=== PATIENT | female | born 1995 | race Caucasian/White ===

== ENCOUNTER → 2019-02-14 14:25 | Outpatient (CLI) | payer OTHER, SELFPAY ==
[2019-02-14 10:40] VITALS: BMI 29.9
[2019-02-19 16:41] LABS: HPV Reflexed? NOT INDICATED
== END ==
PROVIDERS: Referring Provider Nurse Practitioner Women's Health; Visit Provider Nurse Practitioner Women's Health
DX: Z12.4 Encounter for screening for malignant neoplasm of cervix (principal)
CPT/HCPCS: 87624; 88175; G0145

== ENCOUNTER → 2022-07-07 | Outpatient (CLI) | payer OTHER, SELFPAY ==
[2022-07-17 15:40] LABS: HPV Reflexed? NOT INDICATED
== END | disposition home or self-care (01) ==
LOC: LABSPEC 16:44
PROVIDERS: Visit Provider Obstetrics & Gynecology
DX: Z12.4 Encounter for screening for malignant neoplasm of cervix (principal)
CPT/HCPCS: 88175; G0145

== ENCOUNTER → 2023-06-14 | Outpatient (CLI) | payer OTHER, SELFPAY ==
[2023-06-16 21:06] LABS: Chlamydia By Nucleic Acid AMP Negative (Negative); Gonococcus By Nucleic Acid AMP Negative (Negative)
== END | disposition home or self-care (01) ==
LOC: LABSPEC 13:35
PROVIDERS: Referring Provider Registered Nurse; Visit Provider Registered Nurse
DX: Z34.90 Encounter for supervision of normal pregnancy, unspecified, unspecified trimester (principal); Z3A.00 Weeks of gestation of pregnancy not specified
CPT/HCPCS: 87086; 87491; 87591

== ENCOUNTER → 2023-07-29 | Outpatient (CLI) | payer OTHER, SELFPAY ==
[2023-07-29 08:03] LABS: Absolute Lymphocyte Count 2.06 X10^3/uL (0.83-4.51); Absolute Neutrophil Count 6.6 X10^3/uL (2.0-7.7); Basophil# 0.03 X10^3/uL; Basophil% 0.3 % (0-1); Eosinophil# 0.06 X10^3/uL; Eosinophils% 0.6 % (0-5); Hematocrit 36.6 % (37-47); Hemoglobin 12.7 g/dL (12.0-15.0); Lymphocyte # 2.06 X10^3/ul (0.83-4.51); Lymphocyte % 21.6 % (19-41); Mean Corp Hgb Conc 34.7 g/dL (32-36); Mean Corpuscular Hgb 30.7 pg (27.0-32.0); Mean Corpuscular Volume 88.4 fL (81-99); Mean Platelet Vol. 9.6 fl (6.2-12.0); Monocyte# 0.75 X10^3/uL; Monocyte% 7.9 % (0-10); NRBC Flagged by Analyzer 0 % (0-5); Neutrophil # 6.61 X10^3/uL (2.7-7.7); Neutrophil % 69.2 % (47-70); Platelet Count 233 K/mm3 (150-450); RBC Distribution Width CV 12.5 % (11.6-14.6); RBC Distribution Width SD 40.3 fl (35.1-43.9); Red Blood Count 4.14 M/mm3 (4.2-5.4); White Blood Count 9.6 K/mm3 (4.4-11.0)
[2023-07-29 08:59] LABS: Hemoglobin A1c 5.2 % (3.8-5.6)
[2023-07-31 09:29] LABS: HIV - WCH Non-Reactive (Nonreactive); Hepatitis B Surface Antigen Non-Reactive (Nonreactive); Hepatitis C Antibody Non-Reactive (Nonreactive); Rubella IgG Reactive (Nonreactive); Syphilis Antibodies Non-reactive
== END | disposition home or self-care (01) ==
LOC: LAB 07:43
PROVIDERS: PCP Nurse Practitioner Primary Care; Referring Provider Obstetrics & Gynecology; Visit Provider Registered Nurse
DX: O99.210 Obesity complicating pregnancy, unspecified trimester (principal); Z3A.00 Weeks of gestation of pregnancy not specified
CPT/HCPCS: 36415; 83036; 85025; 86703; 86762; 86780; 86803; 86850; 86900; 86901; 87340

== ENCOUNTER → 2023-11-01 | Outpatient (CLI) | payer OTHER, SELFPAY ==
--- OUTSIDE RECORDS SUMMARY | 2023-11-01 08:11 | XMS RPT_ITS | CCD ---
Author Name Unknown Address [address] [facility] [address] [place] [address] Organization [facility] Care Team Providers Care Usability Engineer Name Role Phone Podlogar STEAMBOAT INSPECTOR.Edy MOREJON Primary Care Provider Juan J Crespo MD Primary Care Provider JUAN J CRESPO Primary Care Unavailab le PODLOGAR, EDY Referring Unavailable JUAN J CRESPO Primary Care Unavailab le PODLOGAREDY Referring Unavailable PODLOGAREDY Attending Unavailable JUAN J CRESPO Primary Care Unavailab DARRIAN Houser Primary Care Unavailable KEMAL KNOX Referring Unavailabl e TRA ORTIZ Attending Unavailable Medications Completed/Discontinued Medications Medication Drug Class(es) Dates Sig (Normalized) Sig (Original) salicylic acid 170 mg/ml topical solution (2 sources) Start: 11-05-2019 End: 02-07-2022 Salicylic Acid 17 % external solution Indications: Viral warts, unspecified type Apply to affected area once daily for 14 days. 50 mL 0 11/05/2019 02/07/2022 Discontinued (Course of therapy completed) Problems Problem Classification Problem Date Documented Da te Episodic/Chronic Cardiac dysrhythmias (2 sources) Tachycardia; Translations: [Tachycardia, unspecified] Onset: 02-28-2023 Episodic Immunizations and screening for infectious disease (2 sources) Viral screening status; Translations: [Encounter for screening for other viral diseases] Episodic Other nutritional; endocrine; and metabolic disorders (3 sources) Obese class I; Translations: [Obesity, unspecified] Onset: 02-28-2023 Chronic Other screening for suspected conditions (not mental disorders or infectious disease) (1 source) Patient encounter status; Translations: [Encounter for screening for lipoid disorders] Episodic Results Test Name Value Interpretation Reference Range Facil ity Vital Signs Date Time Vital Sign Value Performing Clinician Roxanne kendall 02-28-2023 11:20-0400 Body weight 91.54 kg Edy Podlogar STEAMBOAT INSPECTOR.HEBREW PROFESSOR Work Phone: [facility] 02-28-2023 11:20-0400 Diastolic blood pressure 78 mm[Hg] Edy Podlogar STEAMBOAT INSPECTOR.HEBREW PROFESSOR Work Phone: [facility] 02-28-2023 11:20-0400 Heart rate 88 /min Edy Podlogar STEAMBOAT INSPECTOR.HEBREW PROFESSOR Work Phone: [facility] 02-28-2023 11:20-0400 Respiratory rate 16 /min Edy Podlogar STEAMBOAT INSPECTOR.HEBREW PROFESSOR Work Phone: [facility] 02-28-2023 11:20-0400 SaO2% (BldA) [Mass fraction] 98 % Edy Podlogar STEAMBOAT INSPECTOR.HEBREW PROFESSOR Work Phone: [facility] 02-28-2023 11:20-0400 Systolic blood pressure 118 mm[Hg] Edy Podlogar STEAMBOAT INSPECTOR.HEBREW PROFESSOR Work Phone: [facility] 02-07-2022 09:53-0400 Body height 166.8 cm Edy Podlogar STEAMBOAT INSPECTOR.HEBREW PROFESSOR Work Phone: [facility] 02-07-2022 09:53-0400 Body weight 91.44 kg Edy Podlogar STEAMBOAT INSPECTOR.HEBREW PROFESSOR Work Phone: [facility] 02-07-2022 09:53-0400 Diastolic blood pressure 84 mm[Hg] Edy Podlogar STEAMBOAT INSPECTOR.HEBREW PROFESSOR Work Phone: [facility] 02-07-2022 09:53-0400 Heart rate 99 /min Edy Podlogar STEAMBOAT INSPECTOR.HEBREW PROFESSOR Work Phone: [facility] 02-07-2022 09:53-0400 Respiratory rate 18 /min Edy Podlogar STEAMBOAT INSPECTOR.HEBREW PROFESSOR Work Phone: [facility] 02-07-2022 09:53-0400 SaO2% (BldA) [Mass fraction] 98 % Edy Pratt STEAMBOAT INSPECTOR.JEAN-PIERRE Work Phone: [facility] 02-07-2022 09:53-0400 Systolic blood pressure 118 mm[Hg] Edy Pratt STEAMBOAT INSPECTOR.JEAN-PIERRE Work Phone: [facility] Encounters Encounter Date Encounter Type Care Provider Facility Start: 09-05-2023 End: 09-05-2023 ambulatory [facility] Start: 03-01-2023 Telephone encounter Edy santos STEAMBOAT INSPECTOR.JEAN-PIERRE Work Phone: [facility] Procedures Date Procedure Procedure Detail Performing Clinician Start: 02-28-2023 Ecg routine ecg w/le ast 12 lds i&r only [facility] Provider Start: 11-02-2019 Adult depression screening assessment Edy Pratt APRN.HEBREW PROFESSOR Work Phone: Plan of Treatment Date Care Activity Detail Author Start: 05-26-2023 Influenza vaccination INFLUENZ A (Season Ended) [facility] Start: 02-28-2023 End: 04-30-2023 Comprehensive metabolic 2000 panel - Serum or Plasma [facility] Work Phone: Immunizations Immunization Date Immunization Notes Care Provider Kwan kendrick 04-09-2013 hepatitis A vaccine, unspecified formulation Edy Pratt STEAMBOAT INSPECTOR.JEAN-PIERRE Work Phone: [facility] 04-09-2013 human papilloma viru s vaccine, quadrivalent Edy Podlogar STEAMBOAT INSPECTOR.HEBREW PROFESSOR Work Phone: [facility] 11-19-2012 human papilloma viru s vaccine, quadrivalent Edy Podlogar STEAMBOAT INSPECTOR.HEBREW PROFESSOR Work Phone: [facility] 10-15-2012 human papilloma viru s vaccine, quadrivalent Edy Podlogar STEAMBOAT INSPECTOR.HEBREW PROFESSOR Work Phone: [facility] Work Phone: 10-15-2012 Meningococcal, MCV4, unspecified conjugate formulation(groups A, C, Y and W-135) Edy Pratt STEAMBOAT INSPECTOR.HEBREW PROFESSOR Work Phone: [facility] Work Phone: 10-04-2012 hepatitis A vaccine, unspecified formulation Edy Podlogar STEAMBOAT INSPECTOR.HEBREW PROFESSOR Work Phone: [facility] 10-04-2012 influenza virus vaccine, live, attenuated, for intranasal use Edy Podlogar STEAMBOAT INSPECTOR.HEBREW PROFESSOR Work Phone: [facility] 07-10-2010 influenza virus vaccine, live, attenuated, for intranasal use Edy Podlogar STEAMBOAT INSPECTOR.HEBREW PROFESSOR Work Phone: [facility] 07-02-2009 influenza virus vaccine, live, attenuated, for intranasal use Edy Podlogar STEAMBOAT INSPECTOR.[facility] Work Phone: [facility] Work Phone: 06-26-2008 influenza virus vaccine, live, attenuated, for intranasal use Edy Podlogar STEAMBOAT INSPECTOR.[facility] Work Phone: [facility] Work Phone: 06-26-2008 Meningococcal, MCV4, unspecified conjugate formulation(groups A, C, Y and W-135) Edy Podlogar STEAMBOAT INSPECTOR.[facility] Work Phone: [facility] Work Phone: 08-04-2007 influenza virus vaccine, live, attenuated, for intranasal use Edy Podlogar STEAMBOAT INSPECTOR.HEBREW PROFESSOR Work Phone: [facility] Work Phone: 07-31-2006 influenza virus vaccine, whole virus Edy Podlogar STEAMBOAT INSPECTOR.HEBREW PROFESSOR Work Phone: [facility] Work Phone: 05-15-2006 tetanus toxoid, redu brie diphtheria toxoid, and acellular pertussis vaccine, adsorbed Edy Podlogar STEAMBOAT INSPECTOR.HEBREW PROFESSOR Work Phone: [facility] 02-04-2000 diphtheria, tetanus toxoids and acellular pertussis vaccine Edy Podlogar STEAMBOAT INSPECTOR.HEBREW PROFESSOR Work Phone: [facility] 02-04-2000 measles, mumps and rubella virus vaccine Edy Podlogar STEAMBOAT INSPECTOR.HEBREW PROFESSOR Work Phone: [facility] 02-04-2000 poliovirus vaccine, inactivated Edy Podlogar STEAMBOAT INSPECTOR.HEBREW PROFESSOR Work Phone: [facility] 09-25-1997 Chicken Pox (disease) Edy Podlogar STEAMBOAT INSPECTOR.HEBREW PROFESSOR Work Phone: [facility] 11-25-1996 diphtheria, tetanus toxoids and acellular pertussis vaccine Edy Podlogar STEAMBOAT INSPECTOR.HEBREW PROFESSOR Work Phone: [facility] 04-22-1996 haemophilus influenz ae type b vaccine, HbOC conjugate Edy Podlogar STEAMBOAT INSPECTOR.HEBREW PROFESSOR Work Phone: [facility] 04-22-1996 measles, mumps and rubella virus vaccine Edy Podlogar STEAMBOAT INSPECTOR.HEBREW PROFESSOR Work Phone: [facility] 1995 diphtheria, tetanus toxoids and pertussis vaccine Edy Podlogar STEAMBOAT INSPECTOR.HEBREW PROFESSOR Work Phone: [facility] 1995 haemophilus influenz ae type b vaccine, HbOC conjugate Edy Podlogar STEAMBOAT INSPECTOR.HEBREW PROFESSOR Work Phone: [facility] 1995 hepatitis B vaccine, pediatric or pediatric/adolescent dosage Edy Podlogar STEAMBOAT INSPECTOR.HEBREW PROFESSOR Work Phone: [facility] 1995 trivalent poliovirus vaccine, live, oral Edy Podlogar STEAMBOAT INSPECTOR.HEBREW PROFESSOR Work Phone: [facility] 1995 diphtheria, tetanus toxoids and pertussis vaccine Edy Podlogar STEAMBOAT INSPECTOR.HEBREW PROFESSOR Work Phone: [facility] 1995 haemophilus influenz ae type b vaccine, HbOC conjugate Edy Podlogar STEAMBOAT INSPECTOR.HEBREW PROFESSOR Work Phone: [facility] 1995 hepatitis B vaccine, pediatric or pediatric/adolescent dosage Edy Podlogar STEAMBOAT INSPECTOR.HEBREW PROFESSOR Work Phone: [facility] 1995 trivalent poliovirus vaccine, live, oral Edy Podlogar STEAMBOAT INSPECTOR.HEBREW PROFESSOR Work Phone: [facility] 1995 diphtheria, tetanus toxoids and pertussis vaccine Edy Podlogar STEAMBOAT INSPECTOR.HEBREW PROFESSOR Work Phone: [facility] 1995 haemophilus influenz ae type b vaccine, HbOC conjugate Edy Podlogar STEAMBOAT INSPECTOR.HEBREW PROFESSOR Work Phone: [facility] 1995 hepatitis B vaccine, pediatric or pediatric/adolescent dosage Edy Podlogar STEAMBOAT INSPECTOR.HEBREW PROFESSOR Work Phone: [facility] 1995 trivalent poliovirus vaccine, live, oral Edy Podlogar STEAMBOAT INSPECTOR.HEBREW PROFESSOR Work Phone: [facility] Payers Date Payer Category Payer Private Health Insurance [employer] A ETNA CHOICE POS II [id number] 2021-Present [phone] [address] [place] [address] POS [id number] 2021 Private Health Insurance [employer] A ETNA CHOICE POS II [id number] 2021-Present [phone] [address] [place] [address] POS [id number] 2021 Private Health Insurance [id number] 1995 Unknown [id number] Unknown [id number] Social History Date Type Detail Facility Start: 02-28-2023 Tobacco smoking stat us [facility] Never smoked tobacco [facility] Start: 02-07-2022 End: 02-28-2023 Alcohol intake Current drinker of alcohol (finding) [facility] Start: 01-31-2022 End: 02-21-2023 History SDOH Alcohol Frequency 2 [facility] Start: 01-31-2022 End: 02-21-2023 History SDOH Alcohol Std Drinks 1 [facility] Start: 01-31-2022 End: 02-21-2023 History SDOH Social Connections Get Together 3 [facility] Start: 01-31-2022 History SDOH Physica l Activity MPS 4 [facility] Start: 01-31-2022 End: 02-21-2023 History SDOH Financial 5 [facility] Start: 11-02-2019 Education 17 [facility] Start: 1995 Sex Assigned At Female C [facility] Start: 02-28-2023 Tobacco use and exposure Smoke less tobacco non-user [facility] Note 03-01-2023 Telephone Encounter - Sherrell Armstrong LPN - 03/01/2023 2:14 PM EDTTelephone Encounter - Annie Cohn RN - 03/01/2023 8:18 AM EDT Note Date & Type Note Facility 03-01-2023 Miscellaneous Notes Formattin g of this note might be different from the original. Patient returned call and went over results, notes from Edy Pratt TEACHING FELLOW with understanding. Aware form had been faxed. Called and left a voicemail for the Patient to call back and ask for a nurse to receive the providers message. Patience PALAFOX faxed form for Pt. Annie Cohn RN Please call patient and let her know her total and bad cholesterol (LDL) have increased and are borderline elevated. Recommend at least 150 minutes of exercise per week and aim for at least 150 minutes of exercise per week. The rest of her blood work is normal. I have completed her result form and it may be faxed to [phone]. 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 Edy Pratt APRN.JEAN-PIERRE documented in this encounter [facility] Progress note 02-28-2023 Note Date & Type Note Facility 02-28-2023 Note HNO ID: [id number] Author: Edy Pratt APRN.HEBREW PROFESSOR Service: ? Author Type: Nurse Practitioner Type: Progress Notes Filed: 02/28/2023 12:18 PM Note Text: 02/28/2023 Patient presents with: Yearly Exam Palpitations: Higher heart rate, noticed in September at OB appointment and then has noticed it on and off since SUBJECTIVE: This is a 27 year old that is here today for Above Complaints. Saw September in OB and her heart rate was 120 or 130. Reports was a little nervous because was getting Nexplanon. On Apple watch will see readings of 130 without being up and around. Has felt palpitations in the past but not necessarily when heart rate elevated. Feels more like there is more energy when notices heart rate elevated. Thinks it occurs about once a daily mostly when going back to work after eating lunch, may last up to an hour. Noticed one time when she drank coffee felt jittery and heart rate fast for about four hours. Tries not to drink a lot of caffeine. Believes at times of anxiety it will elevate as well. Denies accompanying diaphoresis, presyncopal, lightheadedness, dizziness, SOB, dyspnea, or chest pain PAST MEDICAL HISTORY Diagnosis Date Celiac disease Other abnormal heart sounds benign murmur diagonsed 04/2005 by in [facility] - PAST MEDICAL HISTORY OF 05/15/06 normal color vision ALLERGIES Patient has no known allergies. MEDICATIONS No current outpatient medications on file. No current facility-administered medications for this visit. Medications and allergies reviewed by this provider. SOCIAL HISTORY Social History Tobacco Use Smoking status: Never Smokeless tobacco: Never Vaping Use Vaping Use: Never used Substance Use Topics Alcohol use: Yes Drug use: No REVIEW OF SYSTEMS GENERAL: No weight loss, malaise or fevers HEENT: Negative for frequent or significant headaches, No changes in hearing or vision, no nose bleeds or other nasal problems NECK: Negative for lumps, goiter, pain and significant neck swelling RESPIRATORY: Negative for cough, hemoptysis, wheezing, COPD, dyspnea or shortness of breath CARDIOVASCULAR: Negative for chest pain, leg swelling, hypertension, CHF GI: No nausea, vomiting, or diarrhea : No history of dysuria, frequency or incontinence SCALE ADJUSTER: Negative for abnormal vaginal bleeding, abnormal vaginal discharge MUSCULOSKELETAL: Negative for joint pain or swelling, back pain or muscle pain SKIN: Negative for lesions, rash, and itching PSYCH: Negative for sleep disturbance, mood disorder and recent psychosocial stressors HEMATOLOGY/LYMPHOLOGY: Negative for prolonged bleeding, bruising easily or swollen nodes ENDOCRINE: Negative for cold or heat intolerance, polyuria, polydipsia and goiter NEURO: No history of headaches, syncope, paralysis, seizures or tremors All other reviewed and negative other than HPI. OBJECTIVE: BP 118/78 Pulse 88 Resp 16 Wt 91.5 kg (201 lb 12.8 oz) LMP 09/24/2012 SpO2 98% BMI 32.90 kg/m? . Vital signs reviewed by this provider. APPEARANCE Well appearing, alert, in no acute distress, well-hydrated, well nourished. EYES conjunctiva and sclera normal. EARS External ears normal, canals clear NECK Supple, no adenopathy; thyroid symmetric, normal size, no bruits HEART RRR with normal S1 and S2, no murmurs, no gallops, no JVD appreciated LUNG clear to auscultation. No wheezes, rhonchi or rales ABDOMEN bowel sounds normoactive, no bruits, soft, non-tender, non-distended EXTREMITIES Extremities normal, No deformities, No skin discoloration, and No edema SKIN Skin color, texture, turgor normal, no suspicious rashes or lesions to exposed skin COVID-19 VACCINE(1) Never done DTAP,TDAP,TD(7 - Td or Tdap) due on 05/15/2016 PAP TESTING due on 01/30/2022 DEPRESSION ASSESSMENT Never done INFLUENZA(Season Ended) due on 05/26/2023 HEPATITIS B Completed HEPATITIS C SCREENING Completed HIV SCREENING Completed ASSESSMENT/PLAN: 1. Routine physical examination - ICD9: V70.0, ICD10: Z00.00 (primary diagnosis) - Counseled on healthy diet and regular exercise - Calcium intake with supplements or by diet of 1000 mg/day for under 50, 6111-5075 mg/day for 50+ - Depression screening tool completed and reviewed with patient. Based on score and interview, patient is not at risk for depression and recommended no further intervention at this time. - Follow up for annual exam in one year - CBC + DIFF - LIPID PANEL BASIC - COMP METABOLIC PANEL 2. Tachycardia - ICD9: 785.0, ICD10: R00.0 - heart rate 102 on arrival but decreased when examined - no red flag symptoms or exam findings - red flag symptoms discussed, verbalizes understanding - TSH BLD - CBC + DIFF - COMP METABOLIC PANEL - MAGNESIUM BLD - ECG COMPLETE EKG Interpretation: RHYTHM: Normal sinus rhythm at 86 beats per minute AXIS: Normal axis INTERVALS: Normal TX interval QRS COMPLEX: Normal ST SEGMEN (more content not included)... [facility] History of Present illness Narrative 02-28-2023 Edy Pratt APRN.HEBREW PROFESSOR - 02/28/2023 11:25 AM EDT Note Date & Type Note Facility 02-28-2023 History of Presen t illness Narrative 02/28/2023 Patient presents with: Yearly Exam Palpitations: Higher heart rate, noticed in September at OB appointment and then has noticed it on and off since SUBJECTIVE: This is a 27 year old that is here today for Above Complaints. Saw September in OB and her heart rate was 120 or 130. Reports was a little nervous because was getting Nexplanon. On Apple watch will see readings of 130 without being up and around. Has felt palpitations in the past but not necessarily when heart rate elevated. Feels more like there is more energy when notices heart rate elevated. Thinks it occurs about once a daily mostly when going back to work after eating lunch, may last up to an hour. Noticed one time when she drank coffee felt jittery and heart rate fast for about four hours. Tries not to drink a lot of caffeine. Believes at times of anxiety it will elevate as well. Denies accompanying diaphoresis, presyncopal, lightheadedness, dizziness, SOB, dyspnea, or chest pain PAST MEDICAL HISTORY Diagnosis Date Celiac disease Other abnormal heart sounds benign murmur diagonsed 04/2005 by in [facility] - PAST MEDICAL HISTORY OF 05/15/06 normal color vision ALLERGIES Patient has no known allergies. MEDICATIONS No current outpatient medications on file. No current facility-administered medications for this visit. Medications and allergies reviewed by this provider. SOCIAL HISTORY Social History Tobacco Use Smoking status: Never Smokeless tobacco: Never Vaping Use Vaping Use: Never used Substance Use Topics Alcohol use: Yes Drug use: No REVIEW OF SYSTEMS GENERAL: No weight loss, malaise or fevers HEENT: Negative for frequent or significant headaches, No changes in hearing or vision, no nose bleeds or other nasal problems NECK: Negative for lumps, goiter, pain and significant neck swelling RESPIRATORY: Negative for cough, hemoptysis, wheezing, COPD, dyspnea or shortness of breath CARDIOVASCULAR: Negative for chest pain, leg swelling, hypertension, CHF GI: No nausea, vomiting, or diarrhea : No history of dysuria, frequency or incontinence SCALE ADJUSTER: Negative for abnormal vaginal bleeding, abnormal vaginal discharge MUSCULOSKELETAL: Negative for joint pain or swelling, back pain or muscle pain SKIN: Negative for lesions, rash, and itching PSYCH: Negative for sleep disturbance, mood disorder and recent psychosocial stressors HEMATOLOGY/LYMPHOLOGY: Negative for prolonged bleeding, bruising easily or swollen nodes ENDOCRINE: Negative for cold or heat intolerance, polyuria, polydipsia and goiter NEURO: No history of headaches, syncope, paralysis, seizures or tremors All other reviewed and negative other than HPI. OBJECTIVE: BP 118/78 Pulse 88 Resp 16 Wt 91.5 kg (201 lb 12.8 oz) LMP 09/24/2012 SpO2 98% BMI 32.90 kg/m . Vital signs reviewed by this provider. APPEARANCE Well appearing, alert, in no acute distress, well-hydrated, well nourished. EYES conjunctiva and sclera normal. EARS External ears normal, canals clear NECK Supple, no adenopathy; thyroid symmetric, normal size, no bruits HEART RRR with normal S1 and S2, no murmurs, no gallops, no JVD appreciated LUNG clear to auscultation. No wheezes, rhonchi or rales ABDOMEN bowel sounds normoactive, no bruits, soft, non-tender, non-distended EXTREMITIES Extremities normal, No deformities, No skin discoloration, and No edema SKIN Skin color, texture, turgor normal, no suspicious rashes or lesions to exposed skin COVID-19 VACCINE(1) Never done DTAP,TDAP,TD(7 - Td or Tdap) due on 05/15/2016 PAP TESTING due on 01/30/2022 DEPRESSION ASSESSMENT Never done INFLUENZA(Season Ended) due on 05/26/2023 HEPATITIS B Completed HEPATITIS C SCREENING Completed HIV SCREENING Completed ASSESSMENT/PLAN: 1. Routine physical examination - ICD9: V70.0, ICD10: Z00.00 (primary diagnosis) - Counseled on healthy diet and regular exercise - Calcium intake with supplements or by diet of 1000 mg/day for under 50, 3521-9682 mg/day for 50+ - Depression screening tool completed and reviewed with patient. Based on score and interview, patient is not at risk for depression and recommended no further intervention at this time. - Follow up for annual exam in one year - CBC + DIFF - LIPID PANEL BASIC - COMP METABOLIC PANEL 2. Tachycardia - ICD9: 785.0, ICD10: R00.0 - heart rate 102 on arrival but decreased when examined - no red flag symptoms or exam findings - red flag symptoms discussed, verbalizes understanding - TSH BLD - CBC + DIFF - COMP METABOLIC PANEL - MAGNESIUM BLD - ECG COMPLETE EKG Interpretation: RHYTHM: Normal sinus rhythm at 86 beats per minute AXIS: Normal axis INTERVALS: Normal TX interval QRS COMPLEX: Normal ST SEGMENT: Normal ST-T segments QT INTERVAL: Normal COMPARED WITH PRIOR: None available - discussed zio patch, patient declines at this time and return if occurring more frequently or lasting longer. Avoid caffeine. To ER with red flag symptoms 3. Obesity, Class I, BMI 30-34.9 - ICD9: 278.00, ICD10: E66.9 Stable - Behavioral intervention - Lengthy discussion in office today regarding diet and exercise. Discussed use of small plate to eat meals from, drink 1 glass of water 10-15 minutes prior to eating meal, drink 8 glasses of water daily, eat fresh fruit and vegetable during meal first then lean protein such as grilled/baked chicken breast or fish, limit carbohydrate intake (less pasta, breads, rice and snack foods) as well as limiting sugars (desserts etc). Important to count / track your calories and exercise as well. Edy Pratt APRN.CNP Prescription instructions reviewed with patient as applicable. Patient advised if symptoms do not improve or if symptoms worsen sooner, to contact their primary care physician. Potential red flag symptoms discussed with the patient. Reviewed appropriate action plan to take if red flag symptoms occur. Patient agreeable to treatment plan. documented in this encounter [facility] Note 02-08-2022 Telephone Encounter - Annie Cohn RN - 02/08/2022 10:14 AM EDTTelephone Encounter - Edy Pratt APRN.CNP - 02/08/2022 8:08 AM EDT Note Date & Type Note Facility 02-08-2022 Miscellaneous Notes Pt called and is notified of providers results and instructions. Pt voices understanding. Annie Cohn RN Please call patient and let her know her LLD ( bad cholesterol) is barely above normal. I would recommend low fat diet and at she should be exercising at least 150 minutes per week. HIV and Hepatitis C screening are negative. The rest of her blood work is normal. Edy Pratt APRN.JEAN-PIERRE documented in this encounter [facility] History of Present illness Narrative 02-07-2022 Edy Pratt APRN.CNP - 02/07/2022 9:54 AM EDT Note Date & Type Note Facility 02-07-2022 History of Presen t illness Narrative 02/07/2022 Patient presents with: Physical SUBJECTIVE: This is a 26 year old that is here today for Above Complaints. Since last office visit has been in good health without ER visits or hospitalizations. No concerns today. Does not currently have and exercise regime or follow any specific diet. PAST MEDICAL HISTORY Diagnosis Date Celiac disease Other abnormal heart sounds benign murmur diagonsed 04/2005 by in [facility] - PAST MEDICAL HISTORY OF 05/15/06 normal color vision ALLERGIES Patient has no known allergies. MEDICATIONS Current Outpatient Medications Medication Sig Salicylic Acid 17 % external solution Apply to affected area once daily for 14 days. salicylic acid (MEDIPLAST) 40 % plst Apply 1 Patch to affected area every 48 hours. No current facility-administered medications for this visit. Medications and allergies reviewed by this provider. SOCIAL HISTORY Social History Tobacco Use Smoking status: Never Smoker Smokeless tobacco: Never Used Vaping Use Vaping Use: Never used Substance Use Topics Alcohol use: Yes Drug use: No REVIEW OF SYSTEMS GENERAL: No weight loss, malaise or fevers HEENT: Negative for frequent or significant headaches, No changes in hearing or vision, no nose bleeds or other nasal problems NECK: Negative for lumps, goiter, pain and significant neck swelling RESPIRATORY: Negative for cough, hemoptysis, wheezing, COPD, dyspnea or shortness of breath CARDIOVASCULAR: Negative for chest pain, leg swelling, hypertension, CHF. Admits to occasional palpitations GI: No nausea, vomiting, or diarrhea and No heartburn or reflux symptoms : No history of dysuria, frequency or incontinence SCALE ADJUSTER: Negative for abnormal vaginal bleeding, abnormal vaginal discharge MUSCULOSKELETAL: Negative for joint pain or swelling, back pain or muscle pain SKIN: Negative for lesions, rash, and itching PSYCH: Negative for sleep disturbance, mood disorder and recent psychosocial stressors HEMATOLOGY/LYMPHOLOGY: Negative for prolonged bleeding, bruising easily or swollen nodes ENDOCRINE: Negative for cold or heat intolerance, polyuria, polydipsia and goiter NEURO: No history of headaches, syncope, paralysis, seizures or tremors All other reviewed and negative other than HPI. OBJECTIVE: BP 118/84 Pulse 99 Resp 18 Ht 166.8 cm (5' 5.67 ) Wt 91.4 kg (201 lb 9.6 oz) LMP 09/24/2012 SpO2 98% BMI 32.87 kg/m . Vital signs reviewed by this provider. APPEARANCE Well appearing, alert, in no acute distress, well-hydrated, well nourished. EYES conjunctiva and sclera normal. EARS External ears normal, canals clear NECK Supple, no adenopathy; thyroid symmetric, normal size, no bruits HEART RRR with normal S1 and S2, no murmurs, no gallops, no JVD appreciated LUNG clear to auscultation. No wheezes, rhonchi, or rales EXTREMITIES Extremities normal, No deformities, No skin discoloration and No edema SKIN Skin color, texture, turgor normal, no suspicious rashes or lesions HEPATITIS C SCREENING Never done HIV SCREENING Never done DTAP,TDAP,TD(7 - Td or Tdap) due on 05/15/2016 DEPRESSION SCREENING due on 11/02/2020 PAP TESTING due on 01/30/2022 COVID-19 VACCINE(1) due on 02/07/2023 INFLUENZA(Season Ended) due on 05/26/2022 HPV VACCINE Completed MENINGOCOCCAL CONJUGATE Completed ASSESSMENT/PLAN: 1. Annual physical exam - ICD9: V70.0, ICD10: Z00.00 (primary diagnosis) - Counseled on healthy diet and regular exercise - Discussed need and benefit for weight loss. BMI 32.87 kg/(m^2) - Follow up for annual exam in one year - LIPID PANEL BASIC - COMP METABOLIC PANEL 2. Screening for hyperlipidemia - ICD9: V77.91, ICD10: Z13.220 - LIPID PANEL BASIC - COMP METABOLIC PANEL 3. Special screening examination for viral disease - ICD9: V73.99, ICD10: Z11.59 - HEP C AB IA W/CONF SCRN 4. Screening for HIV (human immunodeficiency virus) - ICD9: V73.89, ICD10: Z11.4 - HIV 1 2 COMBO(AG/AB),WITH REFLEX TO DIFFERENTIATION Edy Pratt APRN.CNP Prescription instructions reviewed with patient as applicable. Patient advised if symptoms do not improve or if symptoms worsen sooner, to contact their primary care physician. Potential red flag symptoms discussed with the patient. Reviewed appropriate action plan to take if red flag symptoms occur. Patient agreeable to treatment plan. documented in this encounter [facility] Evaluation note Note Date & Type Note Facility documented in this encounter [facility] Evaluation note Note Date & Type Note Facility documented in this encounter [facility] Reason for referral (narrative) Outpatient Procedure (Routine) - Closed Note Date & Type Note Facility Referral ID Status Reason Start Date Expiration Date V isits Requested Visits Authorized [id number] Closed Auto-Generate d Referral 02/28/2023 02/28/2024 1 1 [facility] Summary Purpose Family History No Family History Records FoundNo Family History Records Found Advance Directives No Advanced Directives Records FoundNo Advanced Directives Records Found Additional Source Comments Source Comments (unrecognize d section and content) In the event this informatio n is protected by the Federal Confidentiality of Alcohol and Drug Abuse Patient Records regulations: The Federal rules restrict any use of the information to criminally investigate or prosecute any alcohol or drug abuse patient.[facility] the event this information is protected by the Federal Confidentiality of Alcohol and Drug Abuse Patient Records regulations: The Federal rules restrict any use of the information to criminally investigate or prosecute any alcohol or drug abuse patient.[facility] the event this information is protected by the Federal Confidentiality of Alcohol and Drug Abuse Patient Records regulations: The Federal rules restrict any use of the information to criminally investigate or prosecute any alcohol or drug abuse patient.[facility] the event this information is protected by the Federal Confidentiality of Alcohol and Drug Abuse Patient Records regulations: The Federal rules restrict any use of the information to criminally investigate or prosecute any alcohol or drug abuse patient.[facility] Reason for Visit (unrecogniz ed section and content) Reason Comments Results Reason Comments Yearly Exam Palpitations Higher heart rate, n oticed in September at OB appointment and then has noticed it on and off since Care Teams (unrecognized sec tion and content) Usability Engineer Relationship Specialty Start Date End Date PodEdy sanchez APRN.HEBREW PROFESSOR [id number], [place] [address] PCP - General Family Practice 01/18/22 Usability Engineer Relationship Specialty Start Date End Date Juan J Crespo MD [address], [place] [id number] PCP - General Family Medicine 02/27/23 Usability Engineer Relationship Specialty Start Date End Date Juan J Crespo MD [address] [place] [address] PCP - General Family Medicine 02/27/23 INFORMATION SOURCE (unrecogn ized section and content) DATE CREATED AUTHOR AUTHOR'S ORGANIZ ATION 09/07/2023 [facility] FOR RECORDS PERTAINING TO PATIENTS WHO ARE OR HAVE BEEN ENROLLED IN A CHEMICAL DEPENDENCY/SUBSTANCEABUSE PROGRAM, SOME INFORMATION MAY BE OMITTED. This clinical summary was aggregated from multiple sources. Caution should be exercised in using it in the provision of clinical care. This summary normalizes information from multiple sources, and as a consequence, information in this document may materially change the coding, format and clinical context of patient data. In addition, data may be omitted in some cases. CLINICAL DECISIONS SHOULD BE BASED ON THE PRIMARY CLINICAL RECORDS. [employer] provides no warranty or guarantee of the accuracy or completeness of information in this document.
[2023-11-01 08:20] LABS: Absolute Lymphocyte Count 1.63 X10^3/uL (0.83-4.51); Absolute Neutrophil Count 8.3 X10^3/uL (2.0-7.7); Basophil# 0.02 X10^3/uL; Basophil% 0.2 % (0-1); Eosinophil# 0.05 X10^3/uL; Eosinophils% 0.5 % (0-5); Hematocrit 35.5 % (37-47); Hemoglobin 11.9 g/dL (12.0-15.0); Lymphocyte # 1.63 X10^3/ul (0.83-4.51); Lymphocyte % 15.2 % (19-41); Mean Corp Hgb Conc 33.5 g/dL (32-36); Mean Corpuscular Hgb 30.4 pg (27.0-32.0); Mean Corpuscular Volume 90.8 fL (81-99); Mean Platelet Vol. 9.8 fl (6.2-12.0); Monocyte# 0.63 X10^3/uL; Monocyte% 5.9 % (0-10); NRBC Flagged by Analyzer 0 % (0-5); Neutrophil # 8.34 X10^3/uL (2.7-7.7); Neutrophil % 77.5 % (47-70); Platelet Count 237 K/mm3 (150-450); RBC Distribution Width CV 12.8 % (11.6-14.6); RBC Distribution Width SD 42.2 fl (35.1-43.9); Red Blood Count 3.91 M/mm3 (4.2-5.4); White Blood Count 10.7 K/mm3 (4.4-11.0)
[2023-11-01 08:35] LABS: Glucose Challenge Gest 1H 50g 200 mg/dL (70-140)
[2023-11-01 09:26] LABS: HIV - WCH Non-Reactive (Nonreactive); Syphilis Antibodies Non-reactive
== END | disposition home or self-care (01) ==
PROVIDERS: Referring Provider Obstetrics & Gynecology; Visit Provider Obstetrics & Gynecology
DX: O09.91 Supervision of high risk pregnancy, unspecified, first trimester (principal); Z3A.00 Weeks of gestation of pregnancy not specified
CPT/HCPCS: 36415; 82950; 85025; 86703; 86780

== ENCOUNTER 2023-11-22 12:00 | Outpatient (RCR) | payer OTHER, SELFPAY | END 2023-11-23 23:59 | LOC: DC 12:00 | PROVIDERS: Referring Provider Obstetrics & Gynecology; Visit Provider Obstetrics & Gynecology | DX: O24.419 Gestational diabetes mellitus in pregnancy, unspecified control (principal) | CPT/HCPCS: 97802; 97803 ==

== ENCOUNTER 2023-11-30 09:28 | Outpatient (RCR) | payer OTHER, SELFPAY | END 2023-12-24 23:59 | LOC: DC 09:28 | PROVIDERS: Referring Provider Obstetrics & Gynecology; Visit Provider Obstetrics & Gynecology | DX: O24.419 Gestational diabetes mellitus in pregnancy, unspecified control (principal) | CPT/HCPCS: 97803 ==

== ENCOUNTER → 2023-12-05 | Outpatient (CLI) | payer OTHER, SELFPAY ==
--- NOTE | 2023-12-05 15:54 | US_ITS ---
STUDY: SECOND AND THIRD TRIMESTER OBSTETRICAL ULTRASOUND REASON FOR EXAM: Female, 28 years old 32 weeks growth LMP: April 18, 2023. TECHNIQUE: Transabdominal TECHNICAL QUALITY: Adequate. PRIOR ULTRASOUND: None. FINDINGS: There is a single intrauterine fetus. The fetus is in a cephalic presentation. There is demonstrated cardiac activity with a heart rate of 138 bpm. There is a normal amniotic fluid volume. The largest amniotic fluid pocket measures 4.7 cm. The amniotic fluid index (FLOYD) is 11.3 cm. The placenta is anterior in location and is not low lying. There are Grade 1 placental changes. The cervix was not administered due to head position. The adnexal regions are not visualized. BIOMETRY: BPD: 8.3 cm: 33 weeks, 4 days HC: 29.9 cm: 33 weeks, 1 days AC: 28.8 cm: 32 weeks, 6 days FL: 6.5 cm: 33 weeks, 3 days CI: 81.8 FL/BPD: 77.8 FL/HC: FL/AC: 22.5 HC/AC: 1.0 age by current US: 32 weeks, 6 days. CLARK by current US: January 24, 2024. Estimated weight: 2153 grams, +/- 323 grams, 49 %. Age by LMP: 33 weeks, 0 days. CLARK by LMP: January 23, 2024. US/OB Limited With Biometrics IMPRESSION: Single live intrauterine gestation with a mean gestational age of 32 weeks and 6 days. Electronically Signed: Joss Zamarripa MD at 15:38 EDT ,
== END | disposition home or self-care (01) ==
PROVIDERS: PCP Nurse Practitioner Primary Care; Referring Provider Obstetrics & Gynecology; Visit Provider Obstetrics & Gynecology
DX: O24.410 Gestational diabetes mellitus in pregnancy, diet controlled (principal); Z3A.32 32 weeks gestation of pregnancy
CPT/HCPCS: 76816

== ENCOUNTER 2023-12-07 09:50 | Outpatient (CLI) | payer OTHER, SELFPAY ==
[2023-12-07 10:08] VITALS: PULSE 105; O2SAT 97; BMI 34.1
[2023-12-07 10:09] VITALS: BP 124/79; PULSE 96; RESP 16; TEMP 37.2
--- NOTE | 2023-12-07 11:19 | OB.TRI.PN ---
Progress Notes Date of Service: 12/07/23 Progress Note: Patient presents for triage evaluation secondary to non reactive nst and variable FHT: 140 Moderate variability reactive no decelerations category I tracing [place]: no regular Contractions Assessment and plan: reactive nst 05/02 bpp now Reactive NST, reassuring maternal and status patient discharged to home to follow-up as scheduled. See problem list details for additional plan information. Charges/Coding Procedures Urinary/Genital [id number]: [id number] non-stress test Interp
--- OUTSIDE RECORDS SUMMARY | 2023-12-07 13:12 | XMS RPT_ITS | CCD ---
Author Name Unknown Address [address] [address] [facility] [address] [place] [address] Organization [facility] Care Team Providers Care Set Off Blocker Name Role Phone Podlogar OUTSIDE PRODUCTION INSPECTOR.Edy MOREJON Primary Care Provider Terra Crespo MD Primary Care Provider TERRA CRESPO Primary Care Unavailab le PODLOGAR, EDY Referring Unavailable TERRA CRESPO Primary Care Unavailab le PODLOGAREDY Referring Unavailable PODLOGAREDY Attending Unavailable TERRA CRESPO Primary Care Unavailab DARRIAN Houser Primary [...] 11:20-0400 Body weight 91.54 kg Edy Podlogar OUTSIDE PRODUCTION INSPECTOR.SILK FOLDER Work Phone: [facility] 02-28-2023 11:20-0400 Diastolic blood pressure 78 mm[Hg] Edy Podlogar OUTSIDE PRODUCTION INSPECTOR.SILK FOLDER Work Phone: [facility] 02-28-2023 11:20-0400 Heart rate 88 /min Edy Podlogar OUTSIDE PRODUCTION INSPECTOR.SILK FOLDER Work Phone: [facility] 02-28-2023 11:20-0400 Respiratory rate 16 /min Edy Podlogar OUTSIDE PRODUCTION INSPECTOR.SILK FOLDER Work Phone: [facility] 02-28-2023 11:20-0400 SaO2% (BldA) [Mass fraction] 98 % Edy Podlogar OUTSIDE PRODUCTION INSPECTOR.SILK FOLDER Work Phone: [facility] 02-28-2023 11:20-0400 Systolic blood pressure 118 mm[Hg] Edy Podlogar OUTSIDE PRODUCTION INSPECTOR.SILK FOLDER Work Phone: [facility] 02-07-2022 09:53-0400 Body height 166.8 cm Edy Podlogar OUTSIDE PRODUCTION INSPECTOR.SILK FOLDER Work Phone: [facility] 02-07-2022 09:53-0400 Body weight 91.44 kg Edy Podlogar OUTSIDE PRODUCTION INSPECTOR.SILK FOLDER Work Phone: [facility] 02-07-2022 09:53-0400 Diastolic blood pressure 84 mm[Hg] Edy Podlogar OUTSIDE PRODUCTION INSPECTOR.SILK FOLDER Work Phone: [facility] 02-07-2022 09:53-0400 Heart rate 99 /min Edy Podlogar OUTSIDE PRODUCTION INSPECTOR.SILK FOLDER Work Phone: [facility] 02-07-2022 09:53-0400 Respiratory rate 18 /min Edy Podlogar OUTSIDE PRODUCTION INSPECTOR.SILK FOLDER Work Phone: [facility] 02-07-2022 09:53-0400 SaO2% (BldA) [Mass fraction] 98 % Edy Pratt OUTSIDE PRODUCTION INSPECTOR.JEAN-PIERRE Work Phone: [facility] 02-07-2022 09:53-0400 Systolic blood pressure 118 mm[Hg] Edy Pratt OUTSIDE PRODUCTION INSPECTOR.JEAN-PIERRE Work Phone: [facility] Encounters Encounter Date Encounter Type Care Provider Facility Start: 09-05-2023 End: 09-05-2023 ambulatory [facility] Start: 03-01-2023 Telephone encounter Edy santos OUTSIDE PRODUCTION INSPECTOR.JEAN-PIERRE Work Phone: [facility] Procedures Date Procedure Procedure Detail Performing Clinician Start: 02-28-2023 Ecg routine ecg w/le ast 12 lds i&r only [facility] Provider Start: 11-02-2019 Adult depression screening assessment Edy Pratt APRN.SILK FOLDER Work Phone: Plan of Treatment Date Care Activity Detail Author Start: 05-26-2023 Influenza vaccination INFLUENZ A (Season Ended) [facility] Start: 02-28-2023 End: 04-30-2023 Comprehensive metabolic 2000 panel - Serum or Plasma [facility] Work Phone: Immunizations Immunization Date Immunization Notes Care Provider Kwan kendrick 04-09-2013 hepatitis A vaccine, unspecified formulation Edy Pratt OUTSIDE PRODUCTION INSPECTOR.JEAN-PIERRE Work Phone: [facility] 04-09-2013 human papilloma viru s vaccine, quadrivalent Edy Podlogar OUTSIDE PRODUCTION INSPECTOR.SILK FOLDER Work Phone: [facility] 11-19-2012 human papilloma viru s vaccine, quadrivalent Edy Podlogar OUTSIDE PRODUCTION INSPECTOR.SILK FOLDER Work Phone: [facility] 10-15-2012 human papilloma viru s vaccine, quadrivalent Edy Podlogar OUTSIDE PRODUCTION INSPECTOR.SILK FOLDER Work Phone: [facility] Work Phone: 10-15-2012 Meningococcal, MCV4, unspecified conjugate formulation(groups A, C, Y and W-135) Edy Pratt OUTSIDE PRODUCTION INSPECTOR.SILK FOLDER Work Phone: [facility] Work Phone: 10-04-2012 hepatitis A vaccine, unspecified formulation Edy Podlogar OUTSIDE PRODUCTION INSPECTOR.SILK FOLDER Work Phone: [facility] 10-04-2012 influenza virus vaccine, live, attenuated, for intranasal use Edy Podlogar OUTSIDE PRODUCTION INSPECTOR.SILK FOLDER Work Phone: [facility] 07-10-2010 influenza virus vaccine, live, attenuated, for intranasal use Edy Podlogar OUTSIDE PRODUCTION INSPECTOR.SILK FOLDER Work Phone: [facility] 07-02-2009 influenza virus vaccine, live, attenuated, for intranasal use Edy Podlogar OUTSIDE PRODUCTION INSPECTOR.[facility] Work Phone: [facility] Work Phone: 06-26-2008 influenza virus vaccine, live, attenuated, for intranasal use Edy Podlogar OUTSIDE PRODUCTION INSPECTOR.[facility] Work Phone: [facility] Work Phone: 06-26-2008 Meningococcal, MCV4, unspecified conjugate formulation(groups A, C, Y and W-135) Edy Podlogar OUTSIDE PRODUCTION INSPECTOR.[facility] Work Phone: [facility] Work Phone: 08-04-2007 influenza virus vaccine, live, attenuated, for intranasal use Edy Podlogar OUTSIDE PRODUCTION INSPECTOR.SILK FOLDER Work Phone: [facility] Work Phone: 07-31-2006 influenza virus vaccine, whole virus Edy Podlogar OUTSIDE PRODUCTION INSPECTOR.SILK FOLDER Work Phone: [facility] Work Phone: 05-15-2006 tetanus toxoid, redu brie diphtheria toxoid, and acellular pertussis vaccine, adsorbed Edy Podlogar OUTSIDE PRODUCTION INSPECTOR.SILK FOLDER Work Phone: [facility] 02-04-2000 diphtheria, tetanus toxoids and acellular pertussis vaccine Edy Podlogar OUTSIDE PRODUCTION INSPECTOR.SILK FOLDER Work Phone: [facility] 02-04-2000 measles, mumps and rubella virus vaccine Edy Podlogar OUTSIDE PRODUCTION INSPECTOR.SILK FOLDER Work Phone: [facility] 02-04-2000 poliovirus vaccine, inactivated Edy Podlogar OUTSIDE PRODUCTION INSPECTOR.SILK FOLDER Work Phone: [facility] 09-25-1997 Chicken Pox (disease) Edy Podlogar OUTSIDE PRODUCTION INSPECTOR.SILK FOLDER Work Phone: [facility] 11-25-1996 diphtheria, tetanus toxoids and acellular pertussis vaccine Edy Podlogar OUTSIDE PRODUCTION INSPECTOR.SILK FOLDER Work Phone: [facility] 04-22-1996 haemophilus influenz ae type b vaccine, HbOC conjugate Edy Podlogar OUTSIDE PRODUCTION INSPECTOR.SILK FOLDER Work Phone: [facility] 04-22-1996 measles, mumps and rubella virus vaccine Edy Podlogar OUTSIDE PRODUCTION INSPECTOR.SILK FOLDER Work Phone: [facility] 1995 diphtheria, tetanus toxoids and pertussis vaccine Edy Podlogar OUTSIDE PRODUCTION INSPECTOR.SILK FOLDER Work Phone: [facility] 1995 haemophilus influenz ae type b vaccine, HbOC conjugate Edy Podlogar OUTSIDE PRODUCTION INSPECTOR.SILK FOLDER Work Phone: [facility] 1995 hepatitis B vaccine, pediatric or pediatric/adolescent dosage Edy Podlogar OUTSIDE PRODUCTION INSPECTOR.SILK FOLDER Work Phone: [facility] 1995 trivalent poliovirus vaccine, live, oral Edy Podlogar OUTSIDE PRODUCTION INSPECTOR.SILK FOLDER Work Phone: [facility] 1995 diphtheria, tetanus toxoids and pertussis vaccine Edy Podlogar OUTSIDE PRODUCTION INSPECTOR.SILK FOLDER Work Phone: [facility] 1995 haemophilus influenz ae type b vaccine, HbOC conjugate Edy Podlogar OUTSIDE PRODUCTION INSPECTOR.SILK FOLDER Work Phone: [facility] 1995 hepatitis B vaccine, pediatric or pediatric/adolescent dosage Edy Podlogar OUTSIDE PRODUCTION INSPECTOR.SILK FOLDER Work Phone: [facility] 1995 trivalent poliovirus vaccine, live, oral Edy Podlogar OUTSIDE PRODUCTION INSPECTOR.SILK FOLDER Work Phone: [facility] 1995 diphtheria, tetanus toxoids and pertussis vaccine Edy Podlogar OUTSIDE PRODUCTION INSPECTOR.SILK FOLDER Work Phone: [facility] 1995 haemophilus influenz ae type b vaccine, HbOC conjugate Edy Podlogar OUTSIDE PRODUCTION INSPECTOR.SILK FOLDER Work Phone: [facility] 1995 hepatitis B vaccine, pediatric or pediatric/adolescent dosage Edy Podlogar OUTSIDE PRODUCTION INSPECTOR.SILK FOLDER Work Phone: [facility] 1995 trivalent poliovirus vaccine, live, oral Edy Podlogar OUTSIDE PRODUCTION INSPECTOR.SILK FOLDER Work Phone: [facility] Payers Date Payer Category Payer Private Health Insurance [employer]ET[employer] A ETNA CHOICE POS II [id number] 2021-Present [phone] [address] [place] [address] POS [id number] 2021 Private Health Insurance [employer]ET[employer] A ETNA CHOICE POS II [id number] 2021-Present [phone] [address] [place] [address] POS [id number] 2021 Private Health Insurance [id number] 1995 Unknown [id number] Unknown [id number] Social History Date Type Detail Facility Start: 02-28-2023 Tobacco smoking stat us DEIS Never smoked tobacco [facility] Start: 02-07-2022 End: 02-28-2023 Alcohol intake Current drinker of alcohol (finding) [facility] Start: 01-31-2022 End: 02-21-2023 History SDOH Alcohol Frequency 2 [facility] Start: 01-31-2022 End: 02-21-2023 History SDOH Alcohol Std Drinks 1 [facility] Start: 01-31-2022 End: 02-21-2023 History SDOH Social Connections Get Together 3 [facility] Start: 01-31-2022 History SDOH Physica l Activity MPS 4 [facility] Start: 01-31-2022 End: 02-21-2023 History SDOH Financial 5 [facility] Start: 11-02-2019 Education 17 [facility] Start: 1995 Sex Assigned At Female C [facility] Start: 02-28-2023 Tobacco use and exposure Smoke less tobacco non-user [facility] Note 03-01-2023 Telephone Encounter - Sherrell Armstrong LPN - 03/01/2023 2:14 PM EDTTelephone Encounter - Annie Cohn RN - 03/01/2023 8:18 AM EDT Note Date & Type Note Facility 03-01-2023 Miscellaneous Notes Formattin g of this note might be different from the original. Patient returned call and went over results, notes from Edy Pratt EVENT MARKETING COORDINATOR with understanding. Aware form had been faxed. [...] form and it may be faxed to [phone]. Please make copy for our records and take original to medical records and let her know she can corn picker if she wants it. Edy Pratt APRN.JEAN-PIERRE documented in this encounter [facility] Progress note 02-28-2023 Note Date & Type Note Facility 02-28-2023 Note HNO ID: [id number] Author: Edy Pratt APRN.SILK FOLDER Service: ? Author Type: Nurse Practitioner Type: [...] sounds benign murmur diagonsed 04/2005 by in [facility] - PAST MEDICAL HISTORY OF 05/15/06 normal [...] No history of dysuria, frequency or incontinence INSERT OPERATOR: Negative for abnormal vaginal bleeding, abnormal vaginal [...] diet of 1000 mg/day for under 50, 3263-3332 mg/day for 50+ - Depression screening tool [...] per minute AXIS: Normal axis INTERVALS: Normal WI interval QRS COMPLEX: Normal ST SEGMEN (more content not included)... [facility] History of Present illness Narrative 02-28-2023 Edy Pratt APRN.SILK FOLDER - 02/28/2023 11:25 AM EDT Note Date [...] sounds benign murmur diagonsed 04/2005 by in [facility] - PAST MEDICAL HISTORY OF 05/15/06 normal [...] No history of dysuria, frequency or incontinence INSERT OPERATOR: Negative for abnormal vaginal bleeding, abnormal vaginal [...] diet of 1000 mg/day for under 50, 5914-1252 mg/day for 50+ - Depression screening tool [...] per minute AXIS: Normal axis INTERVALS: Normal WI interval QRS COMPLEX: Normal ST SEGMENT: Normal [...] to treatment plan. documented in this encounter [facility] Note 02-08-2022 Telephone Encounter - Annie Cohn [...] Edy Pratt APRN.JEAN-PIERRE documented in this encounter [facility] History of Present illness Narrative 02-07-2022 Edy [...] sounds benign murmur diagonsed 04/2005 by in [facility] - PAST MEDICAL HISTORY OF 05/15/06 normal [...] No history of dysuria, frequency or incontinence INSERT OPERATOR: Negative for abnormal vaginal bleeding, abnormal vaginal [...] to treatment plan. documented in this encounter [facility] Evaluation note Note Date & Type Note Facility documented in this encounter [facility] Evaluation note Note Date & Type Note Facility documented in this encounter [facility] Reason for referral (narrative) Outpatient Procedure (Routine) - Closed Note Date & Type Note Facility Referral ID Status Reason Start Date Expiration Date V isits Requested Visits Authorized [id number] Closed Auto-Generate d Referral 02/28/2023 02/28/2024 1 1 [facility] Summary Purpose Family History No Family History [...] or prosecute any alcohol or drug abuse patient.[facility] the event this information is protected by the Federal Confidentiality of Alcohol and Drug Abuse Patient Records regulations: The Federal rules restrict any use of the information to criminally investigate or prosecute any alcohol or drug abuse patient.[facility] the event this information is protected by the Federal Confidentiality of Alcohol and Drug Abuse Patient Records regulations: The Federal rules restrict any use of the information to criminally investigate or prosecute any alcohol or drug abuse patient.[facility] the event this information is protected by the Federal Confidentiality of Alcohol and Drug Abuse Patient Records regulations: The Federal rules restrict any use of the information to criminally investigate or prosecute any alcohol or drug abuse patient.[facility] Reason for Visit (unrecogniz ed section and content) Reason Comments Results Reason Comments Yearly Exam Palpitations Higher heart rate, n oticed in September at OB appointment and then has noticed it on and off since Care Teams (unrecognized sec tion and content) Set Off Blocker Relationship Specialty Start Date End Date PodEdy sanchez APRN.SILK FOLDER [address] [place], [place] [id number] PCP - General Family Practice 01/18/22 Set Off Blocker Relationship Specialty Start Date End Date Terra Crespo MD [address] [place], [place] [id number] PCP - General Family Medicine 02/27/23 Set Off Blocker Relationship Specialty Start Date End Date Terra Crespo MD [address] [place] [address] PCP - General Family Medicine 02/27/23 INFORMATION SOURCE (unrecogn ized section and content) DATE CREATED AUTHOR AUTHOR'S ORGANIZ ATION 09/07/2023 [facility] FOR RECORDS PERTAINING TO PATIENTS WHO [...] BE BASED ON THE PRIMARY CLINICAL RECORDS. [employer] provides no warranty or guarantee of the accuracy or completeness of information in this document.
== END 2023-12-07 12:39 | disposition home or self-care (01) ==
LOC: WPOUT 09:52 → WP 09:52
PROVIDERS: Referring Provider Obstetrics & Gynecology; Visit Provider Obstetrics & Gynecology
DX: O09.91 Supervision of high risk pregnancy, unspecified, first trimester (principal); Z3A.33 33 weeks gestation of pregnancy
CPT/HCPCS: 59025; 59050; 99221; G0378

== ENCOUNTER → 2023-12-14 | Outpatient (CLI) | payer OTHER, SELFPAY ==
--- NOTE | 2023-12-14 16:05 | US_ITS ---
STUDY: OBSTETRICAL ULTRASOUND - BIOPHYSICAL PROFILE REASON FOR EXAM: Female, 28 years old well being LMP: April 18, 2023. PRIOR ULTRASOUND: Comparison is made with prior study of December 07, 2023. TECHNIQUE: Transabdominal TECHNICAL QUALITY: Adequate. FINDINGS: There is a single intrauterine fetus. The fetus is in a cephalic presentation. There is demonstrated cardiac activity with a heart rate of 144 bpm. There is a normal amniotic fluid volume. The largest amniotic fluid pocket measures 6.3 cm. The amniotic fluid index (FLOYD) is 11.4 cm. The placenta is anterior in location and is not low lying. There are Grade 0 placental changes. Age by LMP: 34 weeks, 2 days. CLARK by LMP: January 23, 2024. BIOPHYSICAL PROFILE: Breathing Movements (FBM): 2 Gross Body Movements (GBM): 2 Tone (FT): 2 Amniotic Fluid Volume (AFV): 2 TOTAL SCORE: US/Biophysical Prof W/O Non Stres IMPRESSION: Normal biophysical profile of 05/02. Electronically Signed: Joss Zamarripa MD at 12:43 EDT ,
== END | disposition home or self-care (01) ==
PROVIDERS: Referring Provider Obstetrics & Gynecology; Visit Provider Obstetrics & Gynecology
DX: O24.419 Gestational diabetes mellitus in pregnancy, unspecified control (principal); Z3A.00 Weeks of gestation of pregnancy not specified
CPT/HCPCS: 76819

== ENCOUNTER 2023-12-23 12:39 | Emergency (ER) | payer OTHER, SELFPAY ==
[2023-12-23 12:40] VITALS: BP 140/82; PULSE 105; RESP 18; TEMP 36.4; O2SAT 97; BMI 34.2
--- NOTE | 2023-12-23 13:58 | EX.ED.DYSGE1 ---
HPI History of Present Illness Chief Complaint: Other, Pain/Inj Informant: patient Onset/Context/Timing Onset: Days (3) Context: Gradual Onset Timing: Continuous Quality: Burning Location: Rectum Worsened by: Sitting down and standing from a seated position Relieved by: Rest Narrative Narrative: Patient presents with rectal pain that has been getting worse over the past 3 days. Patient describes her pain as burning. Patient states it is worse when she sits down and stands up from a seated position. Patient states it is better with rest. Patient denies any rectal bleeding. Patient admits to some pressure in her rectum. Patient denies any fevers or chills. Patient denies any nausea or vomiting. Patient denies any abdominal pain. Patient states she is approximately 36 weeks . [facility] Medical History Celiac disease Hx of cardiac murmur Supervision of high risk in first trimester Home Medications docosahexaenoic acid 200 mg capsule ( DHA) 200 mg PO DAILY 06/14/23 [History Last Taken 12/06/23 21:00 200 mg] blood-glucose sensor (FreeStyle Farhad 3 Sensor device) #1 ea 11/01/23 [Rx Last Taken Unknown] metformin 500 mg tablet 1,000 mg (2 x 500 mg) PO QHS #60 tabs 12/12/23 [Rx Last Taken Unknown] insulin NPH isoph U-100 human 100 unit/mL (3 mL) subcutaneous pen (Humulin N NPH U-100 Insulin KwikPen) 10 unit (0.1 mL) subcut QHS #15 mL 12/19/23 [Rx Last Taken Unknown] Allergy/AdvReac Type Severity Reaction Status Date / Time gluten AdvReac Mild Abd Uncoded 12/23/23 12:42 cramps/diarrhea Family History Mother Thyroid disorder Grandmother Brain tumor Surgical History H/O wisdom tooth extraction History of esophagogastroduodenoscopy (EGD) Social History adopted: No household members: family housing: house number of children: 0 current occupational status: employed current occupation: [employer] pets and animals: Yes history of recent travel: No Smoking Status: Never smoker second hand exposure: No alcohol intake: current alcohol intake frequency: holidays/special occasions only substance use type: does not use diet: gluten free seatbelt use: always do you feel safe at home: Yes additional social history: Bhupinder- IT for [employer] ROS ROS ED Constitutional Constitutional ED: Denies chills or fever(s) Eyes Eyes: Denies blurry vision or change in vision ENT ENT ED: Denies rhinorrhea or sore throat Cardiovascular Cardiovascular: Denies chest pain or palpitations Respiratory/Chest Respiratory/Chest: Denies cough or dyspnea Gastrointestinal Gastrointestinal: Denies nausea or vomiting Genitourinary Genitourinary ED: Denies dysuria or hematuria Musculoskeletal Musculoskeletal: Denies back pain or neck pain Integumentary Denies abscess or rash Neurologic Neurologic: Denies headache(s) or weakness Allergic/Immunologic Allergic/Immunologic ED: Denies mouth swelling or urticaria EXAM Physical Exam Const Vital Signs: 12/23/23 12:40 12/23/23 13:11 Temperature 97.5 F L Temperature Source Temporal Pulse Rate 105 H Respiratory Rate 18 Respiratory Effort Normal Non-Labored Respiratory Pattern Normal Blood Pressure 140/82 H Blood Pressure Mean 101 Pulse Ox 97 Oxygen Delivery Method Room Air Positive well nourished and well developed General Appearance ED: well developed and NAD Neck supple and no JVD Resp normal respiratory effort and clear to auscultation bilaterally Cardio regular rate and regular rhythm GI non-tender and non-distended GI Narrative: There is a gravid uterus palpated. There is no tenderness. Chaperoned rectal exam showed external hemorrhoids. There is no bleeding. There is no thrombosis. There are some mild tenderness over the hemorrhoids. Palpation: soft Rectal Exam: external hemorrhoid(s) Neuro oriented x3, CN's II-XII intact bilaterally and no sensory deficits noted Sensorium / Orientation: alert Motor Exam: strength 5/5 throughout Psych mental status grossly normal MDM MDM MDM Narrative Medical decision making narrative: The patient was advised that these are external hemorrhoids. Patient was advised that they are not thrombosed and did not need to be surgically removed at this time. Patient states she was recently prescribed creams for her hemorrhoids. Patient was instructed to continue with these. Patient was instructed to follow-up with her primary care physician and HIM ASSISTANT as scheduled. Patient understood and was agreeable with the plan. All questions were answered. Discharge Plan Triage Chief Complaint: Other, Pain/Inj ED Provider: Nehemias Dee Dx/Rx/DC Orders Clinical Impression: External hemorrhoids, Instructions: ED Hemorrhoids Prescriptions: No Action DHA 200 mg capsule 200 mg PO DAILY (DME) FreeStyle Farhad 3 Sensor Device See Rx Instructions .Route Qty: 1 0RF Rx Instructions: As directed metformin 500 mg tablet 1,000 mg PO QHS Qty: 60 2RF Humulin N NPH Insulin KwikPen 100 unit/mL (3 mL) insulin pen 10 unit subcut QHS Qty: 15 5RF Primary Care Provider: Ning Manrique Referrals: Ning Manrique MD [Primary Care Provider] - [facility] appointment Care Physician,No Primary [Non-Staff] - Disposition Disposition: Home, Self Care
[2023-12-23 14:26] VITALS: BP 127/63; PULSE 72; RESP 15; TEMP 36.2; O2SAT 99
--- NOTE | 2023-12-26 18:14 | OB.TRI.PN_ITS ---
Progress Notes Date of Service: 12/26/23 Progress Note: Patient presents for triage evaluation secondary to nonreactive NST from office FHT: 145 Moderate variability reactive no decelerations category I tracing [place]: irregular Contractions Assessment and plan: jalen 12 in office, Reactive NST, reassuring maternal and status patient discharged to home to follow-up in office. See problem list details for additional plan information. Charges/Coding Multi Select Codes Urinary/Genital Urinary/Genital CPT Codes: No Charge Assessment & Plan (1) External hemorrhoids: (2) Gestational diabetes: QUALIFIERS: Gestational diabetes mellitus control: diet-controlled Trimester: third trimester Qualified Code(s): O24.410 - Gestational diabetes mellitus in , diet controlled COMMENT: 10uNPH and 1000 mg metformin at night, twice weekly nsts and growth us 32(EFW 49%, HC 16%) and 36. deliver by 39. endocrine consult in december if not controlled with metformin (3) Obesity affecting : QUALIFIERS: Trimester: third trimester Obesity type affecting : unspecified obesity Qualified Code(s): O99.213 - Obesity complicating , third trimester COMMENT: hga1c ordered, encourage healthy weight gain (4) Celiac disease: (5) Supervision of high risk in first trimester: COMMENT: [id number]. CLARK 01/23/2024. : Bella Roe, RN for [facility] [place] in case collaboration is needed [phone]. (6) : QUALIFIERS: Weeks of gestation: 36 weeks Qualified Code(s): Z3A.36 - 36 weeks gestation of COMMENT: Nl anatomy. declines genetic and nipt.
== END 2023-12-23 14:27 | disposition home or self-care (01) ==
PROVIDERS: Emergency Provider Emergency Medicine; PCP Obstetrics & Gynecology; Visit Provider Emergency Medicine
DX: O22.43 Hemorrhoids in pregnancy, third trimester (principal); O99.613 Diseases of the digestive system complicating pregnancy, third trimester; K90.0 Celiac disease; Z3A.36 36 weeks gestation of pregnancy
CPT/HCPCS: 99282

== ENCOUNTER 2023-12-26 10:00 | Outpatient (CLI) | payer OTHER, SELFPAY ==
--- NOTE | 2023-12-26 10:01 | PN_ITS ---
Date of Service: 12/26/23 Progress Note: Patient presents for triage evaluation secondary to nonreactive NST from office FHT: 145 Moderate variability reactive no decelerations category I tracing [place]: irregular Contractions Assessment and plan: jalen 12 in office, Reactive NST, reassuring maternal and status patient discharged to home to follow-up in office. See problem list details for additional plan information. Charges/Coding Multi Select Codes Urinary/Genital Urinary/Genital CPT Codes: No Charge Assessment & Plan (1) External hemorrhoids: (2) Gestational diabetes: QUALIFIERS: Gestational diabetes mellitus control: diet-controlled Trimester: third trimester Qualified Code(s): O24.410 - Gestational diabetes mellitus in , diet controlled COMMENT: 10uNPH and 1000 mg metformin at night, twice weekly nsts and growth us 32(EFW 49%, HC 16%) and 36. deliver by 39. endocrine consult in december if not controlled with metformin (3) Obesity affecting : QUALIFIERS: Trimester: third trimester Obesity type affecting : unspecified obesity Qualified Code(s): O99.213 - Obesity complicating , third trimester COMMENT: hga1c ordered, encourage healthy weight gain (4) Celiac disease: (5) Supervision of high risk in first trimester: COMMENT: [id number]. CLARK 01/23/2024. : Bella Roe, RN for Medical [place] in case collaboration is needed [phone]. (6) : QUALIFIERS: Weeks of gestation: 36 weeks Qualified Code(s): Z3A.36 - 36 weeks gestation of COMMENT: Nl anatomy. declines genetic and nipt.
[2023-12-26 10:05] VITALS: BMI 45.5
[2023-12-26 10:06] VITALS: BP 131/79; PULSE 107; RESP 20; TEMP 36.9
== END 2023-12-26 11:10 | disposition home or self-care (01) ==
LOC: WPOUT 10:01 → WP 10:01
PROVIDERS: PCP Obstetrics & Gynecology; Referring Provider Advanced Practice Midwife; Visit Provider Advanced Practice Midwife
DX: O22.43 Hemorrhoids in pregnancy, third trimester (principal); O24.410 Gestational diabetes mellitus in pregnancy, diet controlled; O99.213 Obesity complicating pregnancy, third trimester; Z3A.36 36 weeks gestation of pregnancy
CPT/HCPCS: 59025; 59050; 99221; G0378

== ENCOUNTER → 2023-12-26 | Outpatient (CLI) | payer OTHER, SELFPAY | END | disposition home or self-care (01) | LOC: LABSPEC 12:39 | PROVIDERS: PCP Obstetrics & Gynecology; Referring Provider Obstetrics & Gynecology; Visit Provider Obstetrics & Gynecology | DX: O09.91 Supervision of high risk pregnancy, unspecified, first trimester (principal); Z3A.00 Weeks of gestation of pregnancy not specified | CPT/HCPCS: 87081 ==

== ENCOUNTER → 2024-01-02 | Outpatient (CLI) | payer OTHER, SELFPAY ==
--- NOTE | 2024-01-02 13:08 | US_ITS ---
STUDY: SECOND AND THIRD TRIMESTER OBSTETRICAL ULTRASOUND REASON FOR EXAM: Female, 28 years old 36 week growth LMP: April 18, 2023. TECHNIQUE: Transabdominal TECHNICAL QUALITY: Adequate. PRIOR ULTRASOUND: Comparison is made with prior study dated December 14, 2023. FINDINGS: There is a single intrauterine fetus. The fetus is in a cephalic presentation. There is demonstrated cardiac activity with a heart rate of 148 bpm. There is a normal amniotic fluid volume. The largest amniotic fluid pocket measures 5 cm. The amniotic fluid index (FLOYD) is 14.4 cm. The placenta is anterior in location and is not low lying. There are Grade 2 placental changes. The cervix was not measured due to head position. The adnexal regions are not visualized. BIOMETRY: BPD: 9.06 cm: 36 weeks, 5 days HC: 32.75 cm: 37 weeks, 1 days AC: 33.12 cm: 37 weeks, 0 days FL: 7.37 cm: 37 weeks, 5 days CI: 79% FL/BPD: 81% FL/HC: FL/AC: 22% HC/AC: 0.99 age by current US: 37 weeks, 3 days. CLARK by current US: January 20, 2024. Estimated weight: 3170 grams, +/- 476 grams, 64 %. age by prior US: 36 weeks, 6 days. CLARK by prior US: January 24, 2024. Age by LMP: 37 weeks, 0 days. CLARK by LMP: January 23, 2024. US/OB Limited With Biometrics IMPRESSION: Single live intrauterine gestation with a mean gestational age of 36 weeks and 6 days. The measurements obtained today fail within the normal expected range. Electronically Signed: Joss Zamarripa MD at 12:26 EDT ,
== END | disposition home or self-care (01) ==
LOC: US 13:07
PROVIDERS: PCP Nurse Practitioner Primary Care; Visit Provider Obstetrics & Gynecology
DX: O24.410 Gestational diabetes mellitus in pregnancy, diet controlled (principal); Z3A.36 36 weeks gestation of pregnancy
CPT/HCPCS: 76816

== ENCOUNTER 2024-01-03 21:30 | Outpatient (CLI) | payer OTHER, SELFPAY ==
[2024-01-03 21:52] VITALS: BMI 34.9
[2024-01-03 21:57] VITALS: RESP 16; TEMP 36.6
[2024-01-03 21:59] VITALS: BP 122/72; PULSE 106
[2024-01-03 22:37] LABS: ROM Internal Control Test YES-OK TO RESULT pt. (Internal QC); ROM Patient Test Negative (Negative); Record Kit Lot#, ROM+ K1409
--- NOTE | 2024-01-08 07:46 | OB.TRI.HP_ITS ---
HPI - General General Date of Service: 01/03/24 Chief Complaint: rule out ROM HPI Narrative ISMAEL RIBEIRO, is a 28 F who presents at 37.1 with questionable LOF. good fm,denies consistent ctx, no vb. Maternal Data Information CLARK Calculator Estimated Delivery Date Method Current WG Current Estimate 01/23/24 LMP (Certain) 37w 6d PFSH PFSH Medical History Celiac disease Hx of cardiac murmur Supervision of high risk in first trimester Home Medications docosahexaenoic acid 200 mg capsule ( DHA) 200 mg PO DAILY 06/14/23 [History Last Taken 12/25/23 22:00] blood-glucose sensor (FreeStyle Farhad 3 Sensor device) #1 ea 11/01/23 [Rx Last Taken Unknown] metformin 500 mg tablet 1,000 mg (2 x 500 mg) PO QHS #60 tabs 12/12/23 [Rx Last Taken 12/25/23 22:00] insulin NPH isoph U-100 human 100 unit/mL (3 mL) subcutaneous pen (Humulin N NPH U-100 Insulin KwikPen) 14 unit subcut QHS 12/26/23 [History Last Taken 12/25/23 23:00 14 units] Allergy/AdvReac Type Severity Reaction Status Date / Time gluten AdvReac Mild Abd Uncoded 01/04/24 08:20 cramps/diarrhea Family History Mother Thyroid disorder Grandmother Brain tumor Surgical History H/O wisdom tooth extraction History of esophagogastroduodenoscopy (EGD) Social History adopted: No household members: family housing: house number of children: 0 current occupational status: employed current occupation: [employer] pets and animals: Yes history of recent travel: No Smoking Status: Never smoker second hand exposure: No alcohol intake: current alcohol intake frequency: holidays/special occasions only substance use type: does not use diet: gluten free seatbelt use: always do you feel safe at home: Yes additional social history: Bhupinder- IT for [employer] History 1 Elective abortions Hx Para Spontaneous abortions Hx # Term Pregnancies Ectopic pregnancies Hx # Pregnancies Multiple births # of living children Visit Details Expected Delivery Route/Plan Labor Preferences- CB/BF classes: scheduled labor support person: Bhupinder labor intervention preferences: [] pain management options preferred: ok if epidural requested cut cord/dad catch: yes : yes PP control planned: discussed discussed possible routes of delivery and associated risks: [] special requests: [] Plans Covid status:declined Flu vaccine: declined Tdap vaccine: given Rhogam: NA LARC form signed: yes Problem list reviewed and updated with the most current plan of care details and appropriate orders placed. Relevant counseling for the gestational age provided. Continue routine care and follow up unless otherwise noted in visit notes/problem list details OB Flowsheet Initial Weight: 206 lb Date -?-?-?-?-?-?-?-?-?-?-?-?- EGA Weight BP Urine Prot -?-?-?-?-?-?-?-?-?-?-?-?- Glucose FHR FuHt Pres Dilation -?-?-?-?-?-?-?-?-?-?-?-?- Effaced St Visit Note 06/14/23 -?-?-?-?-?-?-?-?-?-?-?-?- 8w 1d 206 lb 2 oz (+2 oz) 116/79 -?-?-?-?-?-?-?-?-?-?-?-?- 168 -?-?-?-?-?-?-?-?-?-?-?-?- LC- CRL con with LMP. CLARK 01/22. BMI 31. early glucose ordered. LC- CRL con with LMP. CLARK . BMI 34. early glucose ordered. 07/10/23 -?-?-?-?-?-?-?-?-?-?-?-?- 11w 6d 205 lb 6 oz (-10 oz) 118/79 Negative -?-?-?-?-?-?-?-?-?-?-?-?- Negative 160 -?-?-?-?-?-?-?-?-?-?-?-?- SM- SM- no vb cramping 08/01/23 -?-?-?-?-?-?-?-?-?-?-?-?- 15w 0d 203 lb (-3 lb) 122/70 Negative -?-?-?-?-?-?-?-?-?-?-?-?- Negative 159 -?-?-?-?-?-?-?-?-?-?-?-?- MH-No VB or cram ping. Feels well. Diet discussed. reviewed labs. 09/05/23 -?-?-?-?-?-?-?-?-?-?-?-?- 20w 0d 203 lb 6 oz (-2 lb 10 oz) 120/77 Negative -?-?-?-?-?-?-?-?-?-?-?-?- Negative 140 20 -?-?-?-?-?-?-?-?-?-?-?-?- kw- no vb/lof/ct x. possible fm. has US today. 10/04/23 -?-?-?-?-?-?-?-?-?-?-?-?- 24w 1d 202 lb 4 oz (-3 lb 12 oz) 122/76 Negative -?-?-?-?-?-?-?-?-?-?-?-?- Negative 144 24 -?-?-?-?-?-?-?-?-?-?-?-?- JV-no lof, vagin al bleeding, or dec fm. plan for glucola and give breast pump rx 11/01/23 -?-?-?-?-?-?-?-?-?-?-?-?- 28w 1d 204 lb 6 oz (-1 lb 10 oz) 129/81 Negative -?-?-?-?-?-?-?-?-?-?-?-?- Negative 159 28 -?-?-?-?-?-?-?-?-?-?-?-?- JV- no lof, vagi nal bleeding ,or dec fm. failed 1 hr (200) discussed glucose goals and diagnosis of gestational DM. 11/13/23 -?-?-?-?-?-?-?-?-?-?-?-?- 29w 6d 207 lb 4 oz (+1 lb 4 oz) 121/76 Negative -?-?-?-?-?-?-?-?-?-?-?-?- Negative 154 30 -?-?-?-?-?-?-?-?-?-?-?-?- MH-No VB, LOF. G ood FM. Seeing dietitian today. Ins is sending glucose monitor and has not checked any yet. Reviewed importance, will call ins today 11/30/23 -?-?-?-?-?-?-?-?-?-?-?-?- 32w 2d 207 lb (+16 oz) 130/74 Negative -?-?-?-?-?-?-?-?-?-?-?-?- Negative 140 -?-?-?-?-?-?-?-?-?-?-?-?- SM- reviewed BS, starting metformin at night. counld't get in to parach[facility] line tier until december. keep appointment in case not controlled with oral meds. add US and twice weekly nsts. 12/05/23 -?-?-?-?-?-?-?-?-?-?-?-?- 33w 0d 204 lb (-2 lb) 130/82 Negative -?-?-?-?-?-?-?-?-?-?-?-?- Negative 130 -?-?-?-?-?-?-?-?-?-?-?-?- SM- SM- no vb lof good fm no egu lar ctx 12/07/23 -?-?-?-?-?-?-?-?-?-?-?-?- 33w 2d 206 lb (+0 oz) 119/74 Negative -?-?-?-?-?-?-?-?-?-?-?-?- Negative 130 -?-?-?-?-?-?-?-?-?-?-?-?- -NSt only and criteria not met. BPP today. Will also need BPP next week rather then NST. Will start weekly NST at 36 wk 12/12/23 -?-?-?-?-?-?-?-?-?-?-?-?- 34w 0d 205 lb 2 oz (-14 oz) 120/81 Negative -?-?-?-?-?-?-?-?-?-?-?-?- Negative 145 33 -?-?-?-?-?-?-?-?-?-?-?-?- KW- NST reactive . has BPP thurs. BS not controlled on 500 HS. Discussed with JV. To increase to 1000 mg HS. Review next appt 12/19/23 -?-?-?-?-?-?-?-?-?-?-?-?- 35w 0d 207 lb (+16 oz) 133/86 Negative -?-?-?-?-?-?-?-?-?-?-?-?- Negative 145 -?-?-?-?-?-?-?-?-?-?-?-?- KW- NST reactive . BS still over range after increase of metformin. Discussed with SM- to start insulin. SM to order. Growth US next week. 12/21/23 -?-?-?-?-?-?-?-?-?-?-?-?- 35w 2d 206 lb 4 oz (+4 oz) 120/73 Negative -?-?-?-?-?-?-?-?-?-?-?-?- Negative 140 -?-?-?-?-?-?-?-?-?-?-?-?- SM- n ovb lof go od fm no regular ctx starting nph at night, reviewed following with us on portal what her BS are to todd able to adjust. 12/26/23 -?-?-?-?-?-?-?-?-?-?-?-?- 36w 0d 207 lb (+16 oz) 116/79 -?-?-?-?-?-?-?-?-?-?-?-?- 145 36 0 -?-?-?-?-?-?-?-?-?-?-?-?- JV- nst not reac tive. gbs colleted and sending to L&D for further monitoring. FLOYD is 12 today 12/29/23 -?-?-?-?-?-?-?-?-?-?-?-?- 36w 3d 207 lb 2 oz (+1 lb 2 oz) 120/72 Negative -?-?-?-?-?-?-?-?-?-?-?-?- Negative 145 -?-?-?-?-?-?-?-?-?-?-?-?- BS controlled SM- no vb of good fm no reug lar ctx BS controlled. 01/02/24 -?-?-?-?-?-?-?-?-?-?-?-?- 37w 0d 207 lb 6 oz (+1 lb 6 oz) 118/74 Negative -?-?-?-?-?-?-?-?-?-?-?-?- Negative 150 -?-?-?-?-?-?-?-?-?-?-?-?- KW-NST only. no concerns. KW-NST only. no concerns. Alegria s growth US today 01/04/24 -?-?-?-?-?-?-?-?-?-?-?-?- 37w 2d 207 lb 4 oz (+1 lb 4 oz) 122/79 Negative -?-?-?-?--?-?-?-?-?-?-?-?- Negative 145 37 1 -?-?-?-?-?-?-?-?-?-?-?-?- 60 -2 KW- no vb/ lof/ctx. good fm. HAd NST in L&D yesterday. not needed today. will come in earlier next week for NST NST FHR Rate Baby A Baseline: 135-140 Variability:: Moderate Accelerations:: 15 x 15 Decelerations:: None NST Reactive:: Yes FHR Category:: Category I FHR Rate Baby B Uterine Activity:: irregular Assessment & Plan (1) No leakage of amniotic fluid into vagina: COMMENT: ROM plus negative, no change in SVE. d/c home. PLAN: Plan Patient presents for triage evaluation secondary to rule out ROM. rom plus neg FHT: Moderate variability reactive no decelerations category I tracing [place]: irreg Contractions Assessment and plan: Reactive NST, reassuring maternal and status patient discharged to home to follow-up in office. See problem list details for additional plan information. Charges/Coding Procedures Urinary/Genital 52xxx-59xxx: 62942-56 non-stress test Interp Multi Select Codes Urinary/Genital Urinary/Genital CPT Codes: 29724-39 non-stress test Interp
--- NOTE | 2024-01-08 07:46 | OB.TRI.NOTE ---
HPI - General General Date of Service: 01/03/24 Chief Complaint: rule out ROM HPI Narrative ISMAEL RIBEIRO, is a 28 F who presents at 37.1 with questionable LOF. good fm,denies consistent ctx, no vb. Maternal Data Information CLARK Calculator Estimated Delivery Date Method Current WG Current Estimate 01/23/24 LMP (Certain) 37w 6d PFSH PFSH Medical History Celiac disease Hx of cardiac murmur Supervision of high risk in first trimester Home Medications docosahexaenoic acid 200 mg capsule ( DHA) 200 mg PO DAILY 06/14/23 [History Last Taken 12/25/23 22:00] blood-glucose sensor (FreeStyle Farhad 3 Sensor device) #1 ea 11/01/23 [Rx Last Taken Unknown] metformin 500 mg tablet 1,000 mg (2 x 500 mg) PO QHS #60 tabs 12/12/23 [Rx Last Taken 12/25/23 22:00] insulin NPH isoph U-100 human 100 unit/mL (3 mL) subcutaneous pen (Humulin N NPH U-100 Insulin KwikPen) 14 unit subcut QHS 12/26/23 [History Last Taken 12/25/23 23:00 14 units] Allergy/AdvReac Type Severity Reaction Status Date / Time gluten AdvReac Mild Abd Uncoded 01/04/24 08:20 cramps/diarrhea Family History Mother Thyroid disorder Grandmother Brain tumor Surgical History H/O wisdom tooth extraction History of esophagogastroduodenoscopy (EGD) Social History adopted: No household members: family housing: house number of children: 0 current occupational status: employed current occupation: [id number] pets and animals: Yes history of recent travel: No Smoking Status: Never smoker second hand exposure: No alcohol intake: current alcohol intake frequency: holidays/special occasions only substance use type: does not use diet: gluten free seatbelt use: always do you feel safe at home: Yes additional social history: Bhupinder- IT for [employer] History 1 Elective abortions Hx Para Spontaneous abortions Hx # Term Pregnancies Ectopic pregnancies Hx # Pregnancies Multiple births # of living children Visit Details Expected Delivery Route/Plan Labor Preferences- CB/BF classes: scheduled labor support person: Bhupinder labor intervention preferences: [] pain management options preferred: ok if epidural requested cut cord/dad catch: yes : yes PP control planned: discussed discussed possible routes of delivery and associated risks: [] special requests: [] Plans Covid status:declined Flu vaccine: declined Tdap vaccine: given Rhogam: NA LARC form signed: yes Problem list reviewed and updated with the most current plan of care details and appropriate orders placed. Relevant counseling for the gestational age provided. Continue routine care and follow up unless otherwise noted in visit notes/problem list details OB Flowsheet Initial Weight: 206 lb Date <del>?</del> EGA Weight BP Urine Prot <del>?</del> Glucose FHR FuHt Pres Dilation <del>?</del> Effaced St Visit Note 06/14/23 <del>?</del> 8w 1d 206 lb 2 oz (+2 oz) 116/79 <del>?</del> 168 <del>?</del> LC- CRL con with LMP. CLARK 01/22. BMI 31. early glucose ordered. LC- CRL con with LMP. CLARK 01/22. BMI 34. early glucose ordered. 07/10/23 <del>?</del> 11w 6d 205 lb 6 oz (-10 oz) 118/79 Negative <del>?</del> Negative 160 <del>?</del> SM- SM- no vb cramping 08/01/23 <del>?</del> 15w 0d 203 lb (-3 lb) 122/70 Negative <del>?</del> Negative 159 <del>?</del> MH-No VB or cramping. Feels well. Diet discussed. reviewed labs. 09/05/23 <del>?</del> 20w 0d 203 lb 6 oz (-2 lb 10 oz) 120/77 Negative <del>?</del> Negative 140 20 <del>?</del> kw- no vb/lof/ctx. possible fm. has US today. 10/04/23 <del>?</del> 24w 1d 202 lb 4 oz (-3 lb 12 oz) 122/76 Negative <del>?</del> Negative 144 24 <del>?</del> JV-no lof, vaginal bleeding, or dec fm. plan for glucola and give breast pump rx 11/01/23 <del>?</del> 28w 1d 204 lb 6 oz (-1 lb 10 oz) 129/81 Negative <del>?</del> Negative 159 28 <del>?</del> JV- no lof, vaginal bleeding ,or dec fm. failed 1 hr (200) discussed glucose goals and diagnosis of gestational DM. 11/13/23 <del>?</del> 29w 6d 207 lb 4 oz (+1 lb 4 oz) 121/76 Negative <del>?</del> Negative 154 30 <del>?</del> MH-No VB, LOF. Good FM. Seeing dietitian today. Ins is sending glucose monitor and has not checked any yet. Reviewed importance, will call ins today 11/30/23 <del>?</del> 32w 2d 207 lb (+16 oz) 130/74 Negative <del>?</del> Negative 140 <del>?</del> SM- reviewed BS, starting metformin at night. counld't get in to [facility] until december. keep appointment in case not controlled with oral meds. add US and twice weekly nsts. 12/05/23 <del>?</del> 33w 0d 204 lb (-2 lb) 130/82 Negative <del>?</del> Negative 130 <del>?</del> SM- SM- no vb lof good fm no egular ctx 12/07/23 <del>?</del> 33w 2d 206 lb (+0 oz) 119/74 Negative <del>?</del> Negative 130 <del>?</del> MH-NSt only and criteria not met. BPP today. Will also need BPP next week rather then NST. Will start weekly NST at 36 wk 12/12/23 <del>?</del> 34w 0d 205 lb 2 oz (-14 oz) 120/81 Negative <del>?</del> Negative 145 33 <del>?</del> KW- NST reactive. has BPP thurs. BS not controlled on 500 HS. Discussed with JV. To increase to 1000 mg HS. Review next appt 12/19/23 <del>?</del> 35w 0d 207 lb (+16 oz) 133/86 Negative <del>?</del> Negative 145 <del>?</del> KW- NST reactive. BS still over range after increase of metformin. Discussed with SM- to start insulin. SM to order. Growth US next week. 12/21/23 <del>?</del> 35w 2d 206 lb 4 oz (+4 oz) 120/73 Negative <del>?</del> Negative 140 <del>?</del> SM- n ovb lof good fm no regular ctx starting nph at night, reviewed following with us on portal what her BS are to todd able to adjust. 12/26/23 <del>?</del> 36w 0d 207 lb (+16 oz) 116/79 <del>?</del> 145 36 0 <del>?</del> JV- nst not reactive. gbs colleted and sending to L&D for further monitoring. FLOYD is 12 today 12/29/23 <del>?</del> 36w 3d 207 lb 2 oz (+1 lb 2 oz) 120/72 Negative <del>?</del> Negative 145 <del>?</del> BS controlled SM- no vb of good fm no reuglar ctx BS controlled. 01/02/24 <del>?</del> 37w 0d 207 lb 6 oz (+1 lb 6 oz) 118/74 Negative <del>?</del> Negative 150 <del>?</del> KW-NST only. no concerns. KW-NST only. no concerns. Has growth US today 01/04/24 <del>?</del> 37w 2d 207 lb 4 oz (+1 lb 4 oz) 122/79 Negative <del>?</del> Negative 145 37 1 <del>?</del> 60 -2 KW- no vb/lof/ctx. good fm. HAd NST in L&D yesterday. not needed today. will come in earlier next week for NST NST FHR Rate Baby A Baseline: 135-140 Variability:: Moderate Accelerations:: 15 x 15 Decelerations:: None NST Reactive:: Yes FHR Category:: Category I FHR Rate Baby B Uterine Activity:: irregular Assessment & Plan (1) No leakage of amniotic fluid into vagina: COMMENT: ROM plus negative, no change in SVE. d/c home. PLAN: Plan Patient presents for triage evaluation secondary to rule out ROM. rom plus neg FHT: Moderate variability reactive no decelerations category I tracing [place]: irreg Contractions Assessment and plan: Reactive NST, reassuring maternal and status patient discharged to home to follow-up in office. See problem list details for additional plan information. Charges/Coding Procedures Urinary/Genital 52xxx-59xxx: 98840-32 non-stress test Interp Multi Select Codes Urinary/Genital Urinary/Genital CPT Codes: 85162-84 non-stress test Interp
== END 2024-01-03 23:00 | disposition home or self-care (01) ==
LOC: WPOUT 21:40 → WP 21:48
PROVIDERS: PCP Nurse Practitioner Primary Care; Visit Provider Registered Nurse
DX: Z03.79 Encounter for other suspected maternal and fetal conditions ruled out (principal); Z3A.37 37 weeks gestation of pregnancy
CPT/HCPCS: 59025; 59050; 84112; 99221; G0378

== ENCOUNTER 2024-01-12 11:59 | Inpatient (IN) | payer OTHER, SELFPAY ==
[2024-01-12] VITALS (30 sets, daily range): BP systolic 121–166; BP diastolic 57–85; PULSE 73–112; RESP 14–18; TEMP 36–37.4; O2SAT 96–100; BMI 34.3
--- NOTE | 2024-01-12 12:21 | HP.PCM.OB_ITS ---
HPI - General General Date of Admission: 01/12/24 Date of Service: 01/12/24 HPI Narrative ISMAEL RIBEIRO, is a 28 F 38.3 weeks gestation who presents to L&D after nonreactive NST in office. While on unit for extended monitoring had late deceleration. Decision made for IOL Maternal Data Information CLARK Calculator Estimated Delivery Date Method Current WG Current Estimate 01/23/24 LMP (Certain) 38w 3d Final CLARK: 01/23/24 Final CLARK Source: US >20 weeks Gestational age: 38.3 weeks PFSH PFSH Medical History Celiac disease Hx of cardiac murmur Supervision of high risk in first trimester Home Medications docosahexaenoic acid 200 mg capsule ( DHA) 200 mg PO DAILY 06/14/23 [History Last Taken 12/25/23 22:00] blood-glucose sensor (FreeStyle Farhad 3 Sensor device) #1 ea 11/01/23 [Rx Last Taken Unknown] metformin 500 mg tablet 1,000 mg (2 x 500 mg) PO QHS #60 tabs 12/12/23 [Rx Last Taken 12/25/23 22:00] insulin NPH isoph U-100 human 100 unit/mL (3 mL) subcutaneous pen (Humulin N NPH U-100 Insulin KwikPen) 16 unit subcut QHS 01/09/24 [History Last Taken Unknown] Allergy/AdvReac Type Severity Reaction Status Date / Time gluten AdvReac Mild Abd Uncoded 01/12/24 08:46 cramps/diarrhea Family History Mother Thyroid disorder Grandmother Brain tumor Surgical History H/O wisdom tooth extraction History of esophagogastroduodenoscopy (EGD) Social History adopted: No household members: family housing: house number of children: 0 current occupational status: employed current occupation: [employer] pets and animals: Yes history of recent travel: No Smoking Status: Never smoker second hand exposure: No alcohol intake: current alcohol intake frequency: holidays/special occasions only substance use type: does not use diet: gluten free seatbelt use: always do you feel safe at home: Yes additional social history: Bhupinder- IT for [employer] History 1 Elective abortions Hx Para Spontaneous abortions Hx # Term Pregnancies Ectopic pregnancies Hx # Pregnancies Multiple births # of living children Visit Details Expected Delivery Route/Plan Labor Preferences- CB/BF classes: scheduled labor support person: Bhupinder labor intervention preferences: [] pain management options preferred: ok if epidural requested cut cord/dad catch: yes : yes PP control planned: discussed discussed possible routes of delivery and associated risks: [] special requests: [] Plans Covid status:declined Flu vaccine: declined Tdap vaccine: given Rhogam: NA LARC form signed: yes Problem list reviewed and updated with the most current plan of care details and appropriate orders placed. Relevant counseling for the gestational age provided. Continue routine care and follow up unless otherwise noted in visit notes/problem list details OB Flowsheet Initial Weight: 206 lb Date -?-?-?-?-?-?-?-?-?-?-?-?- EGA Weight BP Urine Prot -?-?-?-?-?-?-?-?-?-?-?-?- Glucose FHR FuHt Pres Dilation -?-?-?-?-?-?-?-?-?-?-?-?- Effaced St Visit Note 06/14/23 -?-?-?-?-?-?-?-?-?-?-?-?- 8w 1d 206 lb 2 oz (+2 oz) 116/79 -?-?-?-?-?-?-?-?-?-?-?-?- 168 -?-?-?-?-?-?-?-?-?-?-?-?- LC- CRL con with LMP. CLARK 01/22. BMI 31. early glucose ordered. LC- CRL con with LMP. CLARK . BMI 34. early glucose ordered. 07/10/23 -?-?-?-?-?-?-?-?-?-?-?-?- 11w 6d 205 lb 6 oz (-10 oz) 118/79 Negative -?-?-?-?-?-?-?-?-?-?-?-?- Negative 160 -?-?-?-?-?-?-?-?-?-?-?-?- SM- SM- no vb cramping 08/01/23 -?-?-?-?-?-?-?-?-?-?-?-?- 15w 0d 203 lb (-3 lb) 122/70 Negative -?-?-?-?-?-?-?-?-?-?-?-?- Negative 159 -?-?-?-?-?-?-?-?-?-?-?-?- MH-No VB or cram ping. Feels well. Diet discussed. reviewed labs. 09/05/23 -?-?-?-?-?-?-?-?-?-?-?-?- 20w 0d 203 lb 6 oz (-2 lb 10 oz) 120/77 Negative -?-?-?-?-?-?-?-?-?-?-?-?- Negative 140 20 -?-?-?-?-?-?-?-?-?-?-?-?- kw- no vb/lof/ct x. possible fm. has US today. 10/04/23 -?-?-?-?-?-?-?-?-?-?-?-?- 24w 1d 202 lb 4 oz (-3 lb 12 oz) 122/76 Negative -?-?-?-?-?-?-?-?-?-?-?-?- Negative 144 24 -?-?-?-?-?-?-?-?-?-?-?-?- JV-no lof, vagin al bleeding, or dec fm. plan for glucola and give breast pump rx 11/01/23 -?-?-?-?-?-?-?-?-?-?-?-?- 28w 1d 204 lb 6 oz (-1 lb 10 oz) 129/81 Negative -?-?-?-?-?-?-?-?-?-?-?-?- Negative 159 28 -?-?-?-?-?-?-?-?-?-?-?-?- JV- no lof, vagi nal bleeding ,or dec fm. failed 1 hr (200) discussed glucose goals and diagnosis of gestational DM. 11/13/23 -?-?-?-?-?-?-?-?-?-?-?-?- 29w 6d 207 lb 4 oz (+1 lb 4 oz) 121/76 Negative -?-?-?-?-?-?-?-?-?-?-?-?- Negative 154 30 -?-?-?-?-?-?-?-?-?-?-?-?- MH-No VB, LOF. G ood FM. Seeing dietitian today. Ins is sending glucose monitor and has not checked any yet. Reviewed importance, will call ins today 11/30/23 -?-?-?-?-?-?-?-?-?-?-?-?- 32w 2d 207 lb (+16 oz) 130/74 Negative -?-?-?-?-?-?-?-?-?-?-?-?- Negative 140 -?-?-?-?-?-?-?-?-?-?-?-?- SM- reviewed BS, starting metformin at night. counld't get in to supervisor of guidance and testing until december. keep appointment in case not controlled with oral meds. add US and twice weekly nsts. 12/05/23 -?-?-?-?-?-?-?-?-?-?-?-?- 33w 0d 204 lb (-2 lb) 130/82 Negative -?-?-?-?-?-?-?-?-?-?-?-?- Negative 130 -?-?-?-?-?-?-?-?-?-?-?-?- SM- SM- no vb lof good fm no egu lar ctx 12/07/23 -?-?-?-?-?-?-?-?-?-?-?-?- 33w 2d 206 lb (+0 oz) 119/74 Negative -?-?-?-?-?-?-?-?-?-?-?-?- Negative 130 -?-?-?-?-?-?-?-?-?-?-?-?- MH-NSt only and criteria not met. BPP today. Will also need BPP next week rather then NST. Will start weekly NST at 36 wk 12/12/23 -?-?-?-?-?-?-?-?-?-?-?-?- 34w 0d 205 lb 2 oz (-14 oz) 120/81 Negative -?-?-?-?-?-?-?-?-?-?-?-?- Negative 145 33 -?-?-?-?-?-?-?-?-?-?-?-?- KW- NST reactive . has BPP thurs. BS not controlled on 500 HS. Discussed with JV. To increase to 1000 mg HS. Review next appt 12/19/23 -?-?-?-?-?-?-?-?-?-?-?-?- 35w 0d 207 lb (+16 oz) 133/86 Negative -?-?-?-?-?-?-?-?-?-?-?-?- Negative 145 -?-?-?-?-?-?-?-?-?-?-?-?- KW- NST reactive . BS still over range after increase of metformin. Discussed with SM- to start insulin. SM to order. Growth US next week. 12/21/23 -?-?-?-?-?-?-?-?-?-?-?-?- 35w 2d 206 lb 4 oz (+4 oz) 120/73 Negative -?-?-?-?-?-?-?-?-?-?-?-?- Negative 140 -?-?-?-?-?-?-?-?-?-?-?-?- SM- n ovb lof go od fm no regular ctx starting nph at night, reviewed following with us on portal what her BS are to todd able to adjust. 12/26/23 -?-?-?-?-?-?-?-?-?-?-?-?- 36w 0d 207 lb (+16 oz) 116/79 -?-?-?-?-?-?-?-?-?-?-?-?- 145 36 0 -?-?-?-?-?-?-?-?-?-?-?-?- JV- nst not reac tive. gbs colleted and sending to L&D for further monitoring. FLOYD is 12 today 12/29/23 -?-?-?-?-?-?-?-?-?-?-?-?- 36w 3d 207 lb 2 oz (+1 lb 2 oz) 120/72 Negative -?-?-?-?-?-?-?-?-?-?-?-?- Negative 145 -?-?-?-?-?-?-?-?-?-?-?-?- BS controlled SM- no vb of good fm no reug lar ctx BS controlled. 01/02/24 -?-?-?-?-?-?-?-?-?-?-?-?- 37w 0d 207 lb 6 oz (+1 lb 6 oz) 118/74 Negative -?-?-?-?-?-?-?-?-?-?-?-?- Negative 150 -?-?-?-?-?-?-?-?-?-?-?-?- KW-NST only. no concerns. KW-NST only. no concerns. A[place] s growth US today 01/04/24 -?-?-?-?-?-?-?-?-?-?-?-?- 37w 2d 207 lb 4 oz (+1 lb 4 oz) 122/79 Negative -?-?-?-?-?-?-?-?-?-?-?-?- Negative 145 37 1 -?-?-?-?-?-?-?-?-?-?-?-?- 60 -2 KW- no vb/ lof/ctx. good fm. HAd NST in L&D yesterday. not needed today. wi ll come in earlier next week for NST 01/09/24 -?-?-?-?-?-?-?-?-?-?-?-?- 38w 0d 207 lb (+16 oz) 121/79 -?-?-?-?-?-?-?-?-?-?-?-?- 140 38 1 -?-?-?-?-?-?-?-?-?-?-?-?- 60 -2 KW- no vb/ lof/ctx. good fm. NST today. IOL scheduled. labor precautions 01/12/24 -?-?-?-?-?-?-?-?-?-?-?-?- 38w 3d 207 lb 6 oz (+1 lb 6 oz) 130/88 Negative -?-?-?-?-?-?-?-?-?-?-?-?- Negative -?-?-?-?-?-?-?-?-?-?-?-?- to l and d for e xtended monitoring for equivocal nst ROS Constitutional Constitutional: Denies change in weight, fatigue, fever(s), headache(s), poor appetite or weakness Eyes Eyes: Denies blurry vision, change in vision, floaters, seeing flashes or spots in vision ENT HEENT: Denies dizziness, headache(s), loss taste/smell or sore throat Cardiovascular Cardiovascular: Denies chest pain, dizziness, dyspnea, irregular heart rhythm, lightheadedness, palpitations or rapid heart rate Respiratory/Chest Respiratory/Chest: Denies change in mental status, chest tightness, cough, dyspnea or breast pain Gastrointestinal Gastrointestinal: Denies anorexia, chewing difficulty, constipation, diarrhea or weight changes Genitourinary Genitourinary: Denies difficulty urinating, dysuria, flank pain, genital pain, urinary frequency or urinary urgency Musculoskeletal Musculoskeletal: Denies back pain, difficulty walking, extremity pain, joint pain, muscle cramps or muscle weakness Integumentary Integumentary: Denies lesions or unusual bruising Neurologic Neurologic: Denies abnormal movements, abnormal speech, dizziness, numbness, seizure-like activity, syncope or weakness Psychiatric Psychiatric: Denies behavioral changes, change in appetite, confusion, depression, homicidal ideation, suicidal ideation or suicidal thoughts Endocrine Endocrinology: Denies excessive sweating, polydipsia or polyuria Hematologic/Lymphatic Hematologic/Lymphatic: Denies anemia Allergic/Immunologic Allergic/Immunologic: Denies itchy eyes, lip swelling, throat swelling, tongue swelling or wheezing Vital Signs Vital Signs Vital Signs: 01/12/24 10:02 01/12/24 10:02 01/12/24 10:02 Pulse Rate 90 Blood Pressure 125/75 H BP Systolic 125 BP Diastolic 75 Pulse Ox 98 Weight Weight: 206 lb 9.6 oz Body Mass Index (BMI) 34.3 Physical Exam Const alert, oriented x3 and no apparent distress General Appearance: cooperative Orientation / Consciousness: awake HEENT normocephalic Neck full ROM Lymph Lymphatic: no lymphadenopathy noted Chest inspection of chest normal Resp normal respiratory effort and normal air movement Effort and Inspection: able to speak in complete sentences and symmetric chest movement GI soft to palpation and non-tender Inspection: gravid Palpation: soft; Negative for tender external exam normal Manual OB Exam: dilated 1, effaced 70 and station -2 Back/Spine normal to inspection Extremity normal to inspection and full ROM Skin no rashes or lesions noted Psych mental status grossly normal Appearance: grossly normal Speech: normal speech Labs Labs Labs: Blood Type A POSITIVE Antibody Screen NEGATIVE Hct 35.5 % (37-47) L Hgb 11.9 g/dL (12.0-15.0) L Obstetrics Ultrasound Syphilis Total Ab Non-reactive [place]ella IgG Antibody Reactive (Nonreactive) Hep Bs Antigen Non-Reactive (Nonreactive) Hepatitis C Antibody Non-Reactive (Nonreactive) Chlamydia DNA ([place]) Negative (Negative) N.gonorrhoeae DNA ([place]) Negative (Negative) HIV 1&2 Antibody Non-Reactive (Nonreactive) Glucose 1 Hr 50 gm 200 mg/dL (70-140) H Assessment & Plan (1) Encounter for induction of labor: PLAN: Patient presents IOL, plan management for with kaur bulb/pitocin/AROM. Fley Bulb easily placed. patient tolerated well Pain management: plans epidural. GBS negative. Management of any complications: GDM I have reviewed the [facility] and made any clinically relevant updates. Dr Manrique aware of and agrees with above assessment and plan (2) Non-reactive NST (non-stress test): COMMENT: to l and d for extended monitoring (3) Gestational diabetes: QUALIFIERS: Gestational diabetes mellitus control: diet-controlled Trimester: third trimester Qualified Code(s): O24.410 - Gestational diabetes mellitus in , diet controlled COMMENT: 10uNPH and 1000 mg metformin at night, twice weekly nsts and growth us 32(EFW 49%, HC 16%) and 36(67%). deliver by 39. endocrine consult in december if not controlled with metformin (4) Obesity affecting : QUALIFIERS: Trimester: third trimester Obesity type affecting : unspecified obesity Qualified Code(s): O99.213 - Obesity complicating , third trimester COMMENT: hga1c ordered, encourage healthy weight gain (5) Supervision of high risk in first trimester: COMMENT: [id number]. CLARK 01/23/2024. : Bella Roe, RN for Medical [place] in case collaboration is needed [phone]. (6) : QUALIFIERS: Weeks of gestation: 38 weeks Qualified Code(s): Z3A.38 - 38 weeks gestation of COMMENT: Nl anatomy. declines genetic and nipt. Charges/Coding Multi Select Codes Urinary/Genital Urinary/Genital CPT Codes: No Charge
[2024-01-12] MEDS: 0.9% Normal Saline Single 100 ML IV.SOLN. INTRA-UTER (12:30)
[2024-01-12 12:41] LABS: Bedside Glucose 84 mg/dL (74-106)
[2024-01-12 12:56] LABS: Absolute Lymphocyte Count 2.21 X10^3/uL (0.83-4.51); Absolute Neutrophil Count 12.5 X10^3/uL (2.0-7.7); Basophil# 0.05 X10^3/uL; Basophil% 0.3 % (0-1); Eosinophil# 0.02 X10^3/uL; Eosinophils% 0.1 % (0-5); Hemoglobin 11.5 g/dL (12.0-15.0); Lymphocyte # 2.21 X10^3/ul (0.83-4.51); Mean Corp Hgb Conc 32.9 g/dL (32-36); Mean Corpuscular Hgb 28.8 pg (27.0-32.0); Mean Corpuscular Volume 87.7 fL (81-99); Mean Platelet Vol. 11.5 fl (6.2-12.0); Monocyte% 5.7 % (0-10); NRBC Flagged by Analyzer 0 % (0-5); Neutrophil # 12.51 X10^3/uL (2.7-7.7); Neutrophil % 79.5 % (47-70); Platelet Count 214 K/mm3 (150-450); RBC Distribution Width CV 12.6 % (11.6-14.6); RBC Distribution Width SD 40.8 fl (35.1-43.9); Red Blood Count 3.99 M/mm3 (4.2-5.4); White Blood Count 15.8 K/mm3 (4.4-11.0)
[2024-01-12] MEDS: Lactated Ringers 1,000 ML 50 ML IV (13:50)
[2024-01-12] MEDS: Oxytocin 15 Units/NS 250ml 15 UNITS/250 ML IV.SOLN 2 UNITS IV (13:50)
[2024-01-12 13:57] LABS: Syphilis Antibodies Non-reactive
[2024-01-12 14:03] LABS: Bedside Glucose 133 mg/dL (74-106)
[2024-01-12] MEDS: Ondansetron 4 MG/2 ML Vial IV ×3 (14:47→23:43)
[2024-01-12 14:59] LABS: Bedside Glucose 106 mg/dL (74-106)
--- NOTE | 2024-01-12 16:06 | PCM.PN.BLA ---
Progress Note Coping well with contractions current tracing: FHT: 145 Moderate variability reactive no decelerations category I tracing [place]: 3-4 minutes Contractions Membranes:ruptured clear 1600 SVE: 4/50/-2 A/P: Continue with position changes Titrate pitocin per protocol Epidural per anesthesia when requested Anticipate continue to monitor glucose per protocol Dr Manrique aware of above assessment and agrees with plan of care Assessment & Plan Assessment/Plan (1) Encounter for induction of labor: (2) Non-reactive NST (non-stress test): (3) : QUALIFIERS: Weeks of gestation: 38 weeks Qualified Code(s): Z3A.38 - 38 weeks gestation of (4) Supervision of high risk in first trimester: (5) Celiac disease: (6) Obesity affecting : QUALIFIERS: Trimester: third trimester Obesity type affecting : unspecified obesity Qualified Code(s): O99.213 - Obesity complicating , third trimester (7) Gestational diabetes: QUALIFIERS: Gestational diabetes mellitus control: diet-controlled Trimester: third trimester Qualified Code(s): O24.410 - Gestational diabetes mellitus in , diet controlled Multi Select Codes Urinary/Genital Urinary/Genital CPT Codes: No Charge
[2024-01-12 17:20] LABS: Bedside Glucose 90 mg/dL (74-106)
[2024-01-12 17:20] LABS: Bedside Glucose 126 mg/dL (74-106)
[2024-01-12 18:38] LABS: Bedside Glucose 89 mg/dL (74-106)
[2024-01-12] MEDS: LACTATED RINGERS 500 ML 999 ML IV ×2 (19:52→22:29)
[2024-01-12] MEDS: fentaNYL-bupivacaine (epidural) 100 ML BAG EPIDURAL (20:40)
--- NOTE | 2024-01-12 22:14 | PCM.PN.BLA ---
Progress Note comfortable with epidural current tracing: FHT: 155 Moderate variability reactive no decelerations category I tracing [place]: 2-4 minute Contractions Membranes:ruptured remains clear SVE:4/80/-1 A/P: Continue with position changes Titrate pitocin per protocol Epidural per anesthesia Anticipate Dr Manrique aware of above assessment and agrees with plan of care Assessment & Plan Assessment/Plan (1) Encounter for induction of labor: (2) Non-reactive NST (non-stress test): (3) Gestational diabetes: QUALIFIERS: Gestational diabetes mellitus control: diet-controlled Trimester: third trimester Qualified Code(s): O24.410 - Gestational diabetes mellitus in , diet controlled (4) Obesity affecting : QUALIFIERS: Trimester: third trimester Obesity type affecting : unspecified obesity Qualified Code(s): O99.213 - Obesity complicating , third trimester (5) Celiac disease: (6) Supervision of high risk in first trimester: (7) : QUALIFIERS: Weeks of gestation: 38 weeks Qualified Code(s): Z3A.38 - 38 weeks gestation of Multi Select Codes Urinary/Genital Urinary/Genital CPT Codes: No Charge
[2024-01-12 22:28] LABS: Bedside Glucose 102 mg/dL (74-106)
[2024-01-12] MEDS: Lactated Ringers 1,000 ML 200 ML IV (22:29)
[2024-01-12] MEDS: Mag Hydrox/Al Hydrox/Simeth 30 ML UDC PO (23:42)
[2024-01-12] MEDS: 0.9% Saline Lock 10 ML Syringe IV (23:43)
[2024-01-13] VITALS (45 sets, daily range): BP systolic 101–141; BP diastolic 55–82; PULSE 81–118; RESP 14–17; TEMP 36.1–37.6; O2SAT 93–100
--- NOTE | 2024-01-13 00:14 | PN_ITS ---
Progress Note comfortable with epidural but does have a hot spot lower left abdomen current tracing: FHT: 155 Minimal variability reactive no recurrent decelerations category II tracing. Cassandra discontinued and internal monitors placed. Scalp stim at that time. 15x15 accel noted. [place]: 2-3 minute Contractions Membranes:ruptured SVE:/-1 pitocin discontinued for minimal variability reviewed tracing abnormalities since last note: phone collaboration with Dr Manrique at this time for Cat II FHT tracing. continue current plan of care A/P: Continue with position changes Titrate pitocin per protocol Epidural per anesthesia Anticipate [Hilaria] [Pasha] aware of above assessment and agrees with plan of care Assessment & Plan Assessment/Plan (1) Encounter for induction of labor: (2) Non-reactive NST (non-stress test): (3) Gestational diabetes: QUALIFIERS: Gestational diabetes mellitus control: diet-controlled Trimester: third trimester Qualified Code(s): O24.410 - Gestational diabetes mellitus in , diet controlled (4) Obesity affecting : QUALIFIERS: Trimester: third trimester Obesity type affecting : unspecified obesity Qualified Code(s): O99.213 - Obesity complicating , third trimester (5) Celiac disease: (6) Supervision of high risk in first trimester: (7) : QUALIFIERS: Weeks of gestation: 38 weeks Qualified Code(s): Z3A.38 - 38 weeks gestation of Multi Select Codes Urinary/Genital Urinary/Genital CPT Codes: No Charge
[2024-01-13] MEDS: LACTATED RINGERS 500 ML 999 ML IV (00:41)
[2024-01-13] MEDS: fentaNYL-bupivacaine (epidural) 100 ML BAG EPIDURAL ×2 (01:53→06:55)
[2024-01-13 02:24] LABS: Bedside Glucose 116 mg/dL (74-106)
[2024-01-13] MEDS: Lactated Ringers 1,000 ML 200 ML IV (03:25)
[2024-01-13 03:45] LABS: Bedside Glucose 125 mg/dL (74-106)
--- NOTE | 2024-01-13 03:52 | PCM.PN.BLA ---
Progress Note comfortable with epidural current tracing: FHT: 145 Minimal to Moderate variability reactive no decelerations category II tracing [place]: 4-6 minute Contractions Membranes:ruptured remains clear SVE:10-pushing with contractions A/P: Continue with position changes Restarted/titrate pitocin per protocol Epidural per anesthesia Continue to monitor glucose per protocol. If reaches protocol for insulin drip, consult Dr Manrique for orders Anticipate Dr Manrique aware of above assessment and agrees with plan of care Assessment & Plan Assessment/Plan (1) Encounter for induction of labor: (2) Non-reactive NST (non-stress test): (3) Gestational diabetes: QUALIFIERS: Gestational diabetes mellitus control: diet-controlled Trimester: third trimester Qualified Code(s): O24.410 - Gestational diabetes mellitus in , diet controlled (4) Obesity affecting : QUALIFIERS: Trimester: third trimester Obesity type affecting : unspecified obesity Qualified Code(s): O99.213 - Obesity complicating , third trimester (5) Celiac disease: (6) Supervision of high risk in first trimester: (7) : QUALIFIERS: Weeks of gestation: 38 weeks Qualified Code(s): Z3A.38 - 38 weeks gestation of Multi Select Codes Urinary/Genital Urinary/Genital CPT Codes: No Charge
[2024-01-13] MEDS: Mag Hydrox/Al Hydrox/Simeth 30 ML UDC PO (05:01)
[2024-01-13 05:56] LABS: Bedside Glucose 117 mg/dL (74-106)
[2024-01-13 05:56] LABS: Bedside Glucose 136 mg/dL (74-106)
[2024-01-13 06:40] LABS: Bedside Glucose 116 mg/dL (74-106)
--- NOTE | 2024-01-13 07:45 | PCM.DC ---
Discharge Instructions Diet Discharge Diet: No restrictions Activity Discharge Activity: Return to Normal Activity, May Not Drive (while taking narcotic pain medications.) and May Shower May resume sexual activity in: 4-6 weeks Dressing / Incision Call your doctor if your incision/area has: Continuous Slow Oozing, Sudden Increased Bleeding, Increased Pain/ Swelling, Increased Redness and Foul Smelling Discharge Follow Up Care Please Follow Up With: Ning Manrique MD When: Call [phone] to make an appointment with your doctor in 6 weeks. If you had elevated blood pressure or 4th degree laceration, you will need to be seen in 2 weeks. Test Results: Test results from this visit will be discussed in further detail at your follow-up appointment, if applicable. Discharge Plan Admission Admit Date/Time: 01/12/24 11:59 Attending Provider: Elaine Lambert Primary Care Provider: Odalis Pratt NP Discharge Orders/Prescriptions Prescriptions: No Action DHA 200 mg capsule 200 mg PO DAILY (DME) FreeStyle Farhad 3 Sensor Device See Rx Instructions .Route Qty: 1 0RF Rx Instructions: As directed metformin 500 mg tablet 1,000 mg PO QHS Qty: 60 2RF Humulin N NPH Insulin KwikPen 100 unit/mL (3 mL) insulin pen 16 unit subcut QHS Referrals / Follow Up: Odalis Pratt NP, JUNIOR ASSISTANT MANAGER-C [Primary Care Provider] - Disposition Disposition (needs filled in before D/C Order can be placed): Home, Self Care
--- NOTE | 2024-01-13 07:57 | EX.PCM.OBRPT ---
Assessment & Plan (1) Vaginal delivery: COMMENT: kw IOL GDM GIRL (2) Gestational diabetes: QUALIFIERS: Gestational diabetes mellitus control: diet-controlled Trimester: third trimester Qualified Code(s): O24.410 - Gestational diabetes mellitus in , diet controlled COMMENT: 10uNPH and 1000 mg metformin at night, twice weekly nsts and growth us 32(EFW 49%, HC 16%) and 36(67%). deliver by 39. endocrine consult in december if not controlled with metformin (3) Obesity affecting : QUALIFIERS: Trimester: third trimester Obesity type affecting : unspecified obesity Qualified Code(s): O99.213 - Obesity complicating , third trimester COMMENT: hga1c ordered, encourage healthy weight gain (4) Celiac disease: (5) Supervision of high risk in first trimester: COMMENT: [id number]. CLARK 01/23/2024. : Bella Roe, RN for Medical [place] in case collaboration is needed [phone]. (6) : QUALIFIERS: Weeks of gestation: 38 weeks Qualified Code(s): Z3A.38 - 38 weeks gestation of COMMENT: Nl anatomy. declines genetic and nipt. Maternal Data Information CLARK Calculator Estimated Delivery Date Method Current WG Current Estimate 01/23/24 LMP (Certain) 38w 4d Final CLARK: 01/23/24 Final CLARK Source: US >20 weeks Gestational age: 38.4 weeks Vaginal Delivery Maternal Presentation Maternal Presentation: Medically Indicated Induction Maternal Presentation: Progressed well to 10cm dilated and made steady progress with effective maternal pushing. Delivered the head in ROYAL presentation. The head was delivered atraumatically and a tight nuchal cord was identified and was not reduced over the infant's head. delivered through the cord with ease. The anterior and posterior shoulders delivered without complication followed by the rest of the infant and the infant was placed on the maternal abdomen. Delayed cord clamping was employed for approximately 3 minutes. Cord was clamped and cut and gentle traction was applied to the cord and the placenta delivered spontaneously. Immediately following, it was noted to be intact with a 3 vessel cord. The perineum and vagina were inspected and noted to have a second degree laceration which was repaired with 3-0 Vicryl in the usual fashion. EBL was 150cc. Patient and tolerated delivery well. Apgars 9/9. Dr Manrique present for delivery and orders reviewed. Physician agrees with current plan of care. Type of Induction: Pitocin and Jensen Bulb Medical Reason for Induction: Compromise: list: (non-reactive NST) Operative Information Date of Procedure: 01/13/24 Pre-Operative Diagnosis: See AP comments Post-Operative Diagnosis: Same Surgery / Procedure Performed: Spontaneous Vaginal Delivery chemical etch operator #1: Elaine Lambert Type of Anesthesia: Epidural Estimated Blood Loss: 150 Time of Delivery: 07:25 Findings Presentation: Vertex Amniotic Membrane Rupture Type: Artificial Amniotic Fluid Description: Clear Placental Delivery Description: Spontaneous Placenta Disposition: [facility] Cord Vessel Description: 3 Vessels Cord Entanglement: Around neck x 1, tight Infant A Gender: Female (1 minute): 9 (5 minute): 9 Delayed Cord Clamping: Yes Post Vaginal Delivery Medications Given After Delivery: IV Pitocin Episiotomy Description: None Laceration: 2nd degree Complication Complications: None Multi Select Codes Urinary/Genital Urinary/Genital CPT Codes: 79287 Vaginal Delivery [facility]
[2024-01-13 08:03] LABS: Bedside Glucose 116 mg/dL (74-106)
[2024-01-13] MEDS: Oxytocin 15 Units/NS 250ml 15 UNITS/250 ML IV.SOLN 83 UNITS IV (08:07)
--- NOTE | 2024-01-13 08:11 | DCINST_ITS ---
Discharge Instructions Diet Discharge Diet: No restrictions Activity Discharge Activity: Return to Normal Activity May resume sexual activity in: 4-6 weeks Dressing / Incision Call your doctor if your incision/area has: Continuous Slow Oozing, Sudden Increased Bleeding, Increased Pain/ Swelling, Increased Redness and Foul Smelling Discharge Call your doctor if you observe: Fever of 101 or Higher, Coldness, Increased Pain, Numbness or Tingling, Change in Color, Inability to urinate, Inability to have a bowel movement, Using more than 1 pad per hour, Shortness of breath, Dizz iness, Fainting spells, Swelling in the ankles, Chest pain, Increased palpitations (irregular heartbeat), Calf discomfort and Uncontrolled pain Follow Up Care Please Follow Up With: Ning Manrique MD When: Please call the office to schedule your follow up appointment in 6 weeks. If you had high blood pressure please call to schedule an appointment in 2 weeks. Test Results: Test results from this visit will be discussed in further detail at your follow- up appointment, if applicable. Discharge Plan Admission Admit Date/Time: 01/12/24 11:59 Attending Provider: Elaine Lambert Primary Care Provider: Odalis Pratt NP Discharge Orders/Prescriptions Prescriptions: No Action DHA 200 mg capsule 200 mg PO DAILY (DME) FreeStyle Farhad 3 Sensor Device See Rx Instructions .Route Qty: 1 0RF Rx Instructions: As directed metformin 500 mg tablet 1,000 mg PO QHS Qty: 60 2RF Humulin N NPH Insulin KwikPen 100 unit/mL (3 mL) insulin pen 16 unit subcut QHS Referrals / Follow Up: Odalis Pratt NP, E COMMERCE ARCHITECT-C [Primary Care Provider] - Disposition Disposition (needs filled in before D/C Order can be placed): Home, Self Care
[2024-01-13] MEDS: Dibucaine 30 GM Tube 1 APPLIC TOPICAL (11:26)
[2024-01-13] MEDS: Senna/Docusate Sodium 1 Tablet PO (11:26)
[2024-01-13] MEDS: Benzocaine/Lanolin/Aloe Vera 1 SPRAY EACH TOPICAL (11:26)
[2024-01-13] MEDS: Naproxen 500 MG Tablet PO (15:19)
[2024-01-14 05:02] VITALS: PULSE 85; RESP 16; TEMP 36.2; O2SAT 98
[2024-01-14 06:02] LABS: Bedside Glucose 86 mg/dL (74-106)
[2024-01-14 09:17] VITALS: BP 121/72; PULSE 84; RESP 16; TEMP 36.1; O2SAT 97
--- NOTE | 2024-01-14 09:35 | PCM.PN.OB ---
Subjective Subjective Patient doing well without complaints. Tolerating PO. Ambulating and voiding without difficulty. Feeding well. Denies chest pain, shortness of breath, calf pain/swelling, fevers, chills, lightheadedness. Objective Data Objective Data Vital Signs: Vital Signs Temp Pulse Resp BP Pulse Ox O2 Del Method 97.0 F L 84 16 121/72 H 97 Room Air 01/14/24 09:17 01/14/24 09:17 01/14/24 09:17 01/14/24 09:17 01/14/24 09:17 01/14/24 09:17 Oxygen Delivery Method Room Air Weight: 206 lb 9.6 oz Body Mass Index (BMI) 34.3 Intake & Output: Intake and Output for Last 24 Hours 01/12/24 01/13/24 01/14/24 23:59 23:59 23:59 Intake Total 2525.30 / 2525.30 2577.71 / 2577.71 Output Total 400 / 400 1850 / 1850 Balance 2125.30 / 2125.30 727.71 / 727.71 Lab / Micro Data Attestation: I reviewed the patient's lab results. 01/12/24 12:30 Labs: Laboratory Results - last 24 hr 01/14/24 05:07: POC Glucose 86 ROS Constitutional Constitutional: Reports systems reviewed and no addt'l complaints, except as documented; Denies anorexia or headache(s) Cardiovascular Cardiovascular: Reports systems reviewed and no addt'l complaints, except as documented; Denies dizziness, dyspnea, nausea or tachypnea Respiratory/Chest Respiratory/Chest: Reports systems reviewed and no addt'l complaints, except as documented; Denies cough, dyspnea, shortness of breath at rest or tachypnea Gastrointestinal Gastrointestinal: Reports systems reviewed and no addt'l complaints, except as documented; Denies abdominal pain, constipation or nausea Genitourinary Genitourinary: Reports systems reviewed and no addt'l complaints, except as documented; Denies burning urination, difficulty urinating, dysuria, urinary frequency or urinary incontinence Musculoskeletal Musculoskeletal: Reports systems reviewed and no addt'l complaints, except as documented Integumentary Integumentary: Reports systems reviewed and no addt'l complaints, except as documented Neurologic Neurologic: Reports systems reviewed and no addt'l complaints, except as documented; Denies abnormal speech, dizziness or headache(s) Psychiatric Psychiatric: Reports systems reviewed and no addt'l complaints, except as documented Endocrine Endocrinology: Reports systems reviewed and no addt'l complaints, except as documented Hematologic/Lymphatic Hematologic/Lymphatic: Reports systems reviewed and no addt'l complaints, except as documented Physical Exam Const alert, oriented x3 and no apparent distress Neck full ROM Resp normal respiratory effort, normal air movement and no retractions Effort and Inspection: able to speak in complete sentences and symmetric chest movement GI soft to palpation Bladder / Kidney Exam: bladder normal to palpation Uterus Palpation: uterus fundus firm Extremity normal to inspection and full ROM Psych mental status grossly normal, thought process normal and cooperative Assessment & Plan (1) Vaginal delivery: COMMENT: kw IOL GDM GIRL PLAN: s/p PPD # 1 1. routine post delivery care 2. breast feeding- support given 3. rh positive 4. rubella immune 5. Discharge Home (2) Non-reactive NST (non-stress test): COMMENT: to l and d for extended monitoring (3) Gestational diabetes: QUALIFIERS: Gestational diabetes mellitus control: diet-controlled Trimester: third trimester Qualified Code(s): O24.410 - Gestational diabetes mellitus in , diet controlled COMMENT: 10uNPH and 1000 mg metformin at night, twice weekly nsts and growth us 32(EFW 49%, HC 16%) and 36(67%). deliver by 39. endocrine consult in december if not controlled with metformin (4) Obesity affecting : QUALIFIERS: Trimester: third trimester Obesity type affecting : unspecified obesity Qualified Code(s): O99.213 - Obesity complicating , third trimester COMMENT: hga1c ordered, encourage healthy weight gain (5) Supervision of high risk in first trimester: COMMENT: [id number]. CLARK 01/23/2024. : Bella Roe, RN for [facility] in case collaboration is needed [phone]. (6) : QUALIFIERS: Weeks of gestation: 38 weeks Qualified Code(s): Z3A.38 - 38 weeks gestation of COMMENT: Nl anatomy. declines genetic and nipt. Charges/Coding Multi Select Codes Urinary/Genital Urinary/Genital CPT Codes: No Charge
[2024-01-14 13:22] VITALS: BP 118/76; PULSE 86; RESP 16; TEMP 36.2; O2SAT 98
== END 2024-01-14 14:50 | disposition home or self-care (01) | DRG 807 ==
PROVIDERS: Admitting Provider Advanced Practice Midwife; PCP Nurse Practitioner Primary Care; Referring Provider Advanced Practice Midwife; Visit Provider Advanced Practice Midwife
DX: O76 Abnormality in fetal heart rate and rhythm complicating labor and delivery (principal); Z37.0 Single live birth; O24.424 Gestational diabetes mellitus in childbirth, insulin controlled; O99.214 Obesity complicating childbirth; O69.1XX0 Labor and delivery complicated by cord around neck, with compression, not applicable or unspecified; O70.1 Second degree perineal laceration during delivery; Z3A.38 38 weeks gestation of pregnancy
CPT/HCPCS: 59025; 59050; 82962; 85025; 86780; 86850; 86900; 86901; 99221; J7120; A4216; G0378; J2405